=== PATIENT | female | born 1970 | race Caucasian/White ===

== ENCOUNTER 2019-07-15 08:19 | Outpatient (CLI) | payer OTHER, SELFPAY ==
--- NOTE | ~2019-07-15 | CT_ITS ---
EXAMINATION: CT cervical spine wo con DATE: 07/15/2019 08:51 INDICATION: Nerve impingement. Spinal stenosis. TECHNIQUE: Computed tomography (CT) of the cervical spine was performed without intravenous contrast. Automated exposure control and iterative reconstruction technique were employed. The dose-length pro duct was 371.11 mGy-cm. COMPARISON: Cervical spine CT 04/01/2018 FINDINGS: There is mild kyphosis of cervical spine. There is 15 degrees dextroscoliosis of cervical s pine. Vertebral body heights are normal. There is mildly decreased disc height at C5-C6 and C6-C7. Th ere is interbody fusion at C7-T1. The following disc levels are specifically discussed: C2-C3: There is mild bilateral uncovertebral joint osteoarthritis. There is severe bilateral facet shani int osteoarthritis. There is no neural foraminal stenosis. There is no central canal stenosis. C3-C4: There is mild right and severe left uncovertebral joint osteoarthritis. There is severe bilate ral facet joint osteoarthritis. There is mild left neural foraminal stenosis. There is mild central c anal stenosis. C4-C5: There is mild left uncovertebral joint osteoarthritis. There is moderate right and severe left facet joint osteoarthritis. There is mild left neural foraminal stenosis. There is mild central juan f l stenosis. C5-C6: There is mild bilateral uncovertebral joint osteoarthritis. There is mild right and severe lef t facet joint osteoarthritis. There is mild left neural foraminal stenosis. There is mild central can al stenosis. C6-C7: There is mild right and moderate left uncovertebral joint osteoarthritis. There is mild bilate ral facet joint osteoarthritis. There is mild left neural foraminal stenosis. There is mild central c anal stenosis. C7-T1: There is no uncovertebral joint hypertrophy. There is ankylosis of the facet joints without hy pertrophy. There is no neural foraminal stenosis. There is no central canal stenosis. IMPRESSION: 1. Mild cervical spondylosis, stable from 04/01/2018. 2. Anterior and posterior fusion at C7-T1. 3. Cervical dextroscoliosis. Reviewed, dictated and finalized at location E.
--- NOTE | ~2019-07-15 | CT_ITS ---
EXAMINATION: CT thoracic spine wo con EXAM DATE: 07/15/2019 08:51 INDICATION: Nerve impingement. Spinal stenosis. TECHNIQUE: Spiral CT thoracic spine wo con was performed without contrast. Axial, coronal and sagit fran images were reviewed. The dose-length product (DLP) for this examination was 938.19 mGy-cm. The exposure was tailored according to patient size (auto mA exposure control), and iterative reconstruc tion (ASIR) was used as additional dose reduction technique. There is no prior study for comparison. FINDINGS: Spine stimulator device, leads at about T10 level. Pain pump with tip at T9-T10 endplate le anam. There is mild mid and lower thoracic disc disease with small endplate osteophytes and small Schm orl's nodes. The vertebral bodies are aligned in the AP dimension. Vertebral body heights are maintai patrick. Congenitally fused C7-T1 segment. There are no acute fractures identified. Paraspinal soft tissu e is unremarkable. There is mild thoracic facet arthropathy. No central canal or neural foraminal gideon nosis. IMPRESSION: 1. Mild thoracic spondylosis. 2. Spine stimulator and pain pump device. Reviewed, dictated and finalized at location A.
== END 2019-07-15 08:20 | disposition home or self-care (01) ==
PROVIDERS: Visit Provider Nurse Practitioner Family
DX: M47.894 Other spondylosis, thoracic region (principal); Z98.1 Arthrodesis status; M47.22 Other spondylosis with radiculopathy, cervical region
CPT/HCPCS: 72125; 72128

== ENCOUNTER 2019-10-29 06:53 | Outpatient (NON) | payer OTHER, SELFPAY ==
[2019-10-29 18:13] LABS: SARS-CoV-2 RNA PCR Negative
== END 2019-10-29 06:54 ==
PROVIDERS: Visit Provider Nurse Practitioner Adult Health
DX: Z20.828 Contact with and (suspected) exposure to other viral communicable diseases (principal)
CPT/HCPCS: 87635; C9803; U0003

== ENCOUNTER 2020-04-05 02:39 | Emergency (ER) | payer OTHER, SELFPAY ==
[2020-04-05 02:51] VITALS: BP 159/81; PULSE 74; RESP 20; TEMP 37.2; O2SAT 99
--- NOTE | 2020-04-05 03:05 | ED.FEMALEGU ---
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 She reports that she has been on her period for five days, which is unusual. Today while at work she felt a sudden chamorro of blood. She checked and she had soaked through her pad and there was a large clot. She denies any other symptoms. No blood thinners. Related Data Home Medications Medication Instructions Recorded Confirmed Dilaudid 01/23/19 baclofen 01/23/19 01/23/19 clonidine 01/23/19 Allergies Allergy/AdvReac Type Severity Reaction Status Date / Time aspirin Allergy Unknown Vomiting Verified 04/05/20 02:42 celecoxib Allergy Unknown Vomiting Verified 04/05/20 02:42 codeine Allergy Unknown Vomiting Verified 04/05/20 02:42 levofloxacin Allergy Unknown Vomiting Verified 04/05/20 02:42 morphine Allergy Unknown RASH Verified 05/03/18 15:31 Penicillins Allergy Unknown RASH Verified 05/03/18 15:31 Sulfa (Sulfonamide Allergy Unknown Vomiting Verified 04/05/20 02:42 Antibiotics) CIPROFLOXACIN HCL Allergy Unknown Vomiting Uncoded 04/05/20 02:42 NITROFURANTOIN MACROCRYSTAL Allergy Unknown Vomiting Uncoded 04/05/20 02:42 Review of Systems Review of Systems: All systems reviewed & are unremarkable except as noted in HPI and below Constitutional: Constitutional: Denies chills and Denies fatigue ENT: Denies dizziness Cardiovascular: Cardiovascular: Denies chest pain Respiratory: Respiratory: Denies dyspnea Gastrointestinal: Gastrointestinal: Denies abdominal pain, Denies nausea and Denies vomiting Genitourinary: Genitourinary: Denies hematuria, Denies nocturia and Denies dysuria Musculoskeletal: Musculoskeletal: Denies back pain Neurologic: Denies dizziness, Denies numbness and Denies weakness Hematologic/Lymphatic: Hematologic/Lymphatic: Denies easy bleeding and Denies easy bruising PMFSH Past Medical History Medical History Fibromyalgia Sympathetic reflex dystrophy Social History Social History Gender identity (if verbalized by the patient): Male Exam Const: General: no acute distress and alert Orientation/consciousness: patient oriented x3 HENMT: Head: normal to inspection Neck: Neck: normal visual inspection Chest: Chest palpation & inspection: no tenderness Resp: Effort & Inspection: normal respiratory effort Auscultation: clear to auscultation bilaterally, no rales, no rhonchi and no wheezes Cardio: Jugular venous distension: no JVD Rate: regular rate Rhythm: regular rhythm Heart sounds: no murmurs GI: Inspection: non-distended GI Palp: Yes Soft to palpation and No Tenderness to palpation present (GI) : External Female Exam: normal external appearance Speculum Exam - Vagina: normal appearance of the vagina, normal vaginal discharge and vaginal bleeding (moderate) Skin: General skin exam: normal color Neuro: General: patient oriented x3 and moves all extremities Speech: normal speech Gait exam (Neuro): Normal gait present Extrem: General: no edema Psych: Appearance: well kempt Affect: normal affect Course Vital Signs Vital signs: Vital Signs Temperature 37.2 C 04/05/20 02:51 Pulse Rate 74 04/05/20 02:51 Respiratory Rate 20 04/05/20 02:51 Blood Pressure 159/81 H 04/05/20 02:51 Pulse Oximetry 99 04/05/20 02:51 Temperature 37.2 C 04/05/20 02:51 Pulse Rate 71 04/05/20 05:10 Respiratory Rate 18 04/05/20 05:10 Blood Pressure 135/78 04/05/20 05:10 Pulse Oximetry 96 04/05/20 05:10 MDM - Female Genitourinary Lab Data Result diagrams: 04/05/20 03:40 04/05/20 03:40 Labs: Lab Results 04/05/20 04/05/20 04/05/20 Range/Units 03:40 03:40 03:40 WBC 7.0 (4.5-10.
[2020-04-05 03:53] LABS: Basophils Percent Auto 0.6 % (0.2-1.2); Eosinophils Absolute Auto 0.6 K/mm3 (0-0.3); Hematocrit 33.4 % (37.0-47.0); Hemoglobin 10.8 g/dL (12.0-15.0); Immature Granulocyte Absolute 0.02 K/mm3 (0.00-0.031); Immature Granulocyte Percent A 0.3 % (0-0.5); Lymphocytes Absolute Auto 2.39 K/mm3 (0.9-3.2); Lymphocytes Percent Auto 34.2 % (18.3-44.2); Mean Corpuscular HGB Conc 32.3 g/dl (32-36); Mean Corpuscular Hemoglobin 28.1 pg (26-34); Monocytes Absolute Auto 0.5 K/mm3 (0.1-0.6); Neutrophils Absolute Auto 3.5 K/mm3 (1.3-6.7); Neutrophils Percent Auto 49.9 % (45.5-73.1); Platelet Count Result 229 k/mm3 (150-375); Red Blood Count 3.84 M/mm3 (4.2-5.4); Red Cell Distribution Width 13.6 % (11.5-14.5)
[2020-04-05 03:58] LABS: INR 0.9
[2020-04-05 03:59] LABS: Partial Thromboplastin Time 30.6 SECONDS (22.3-36.8)
[2020-04-05 04:00] LABS: Anion Gap 7 mmol/L (8-16); Blood Urea Nitrogen 17 mg/dL (7-17); Calcium 8.6 mg/dL (8.4-10.2); Carbon Dioxide 26 mmol/L (22-30); Chloride 105 mmol/L (98-107); Estimated CRCL calculation 98 ml/min; Estimated Glomerular Filt Rate > 60; Glucose 102 mg/dL (65-105); Potassium 3.6 mmol/L (3.4-5.0); Sodium 138 mmol/L (137-145)
[2020-04-05 05:10] VITALS: BP 135/78; PULSE 71; RESP 18; O2SAT 96
== END 2020-04-05 05:12 | disposition home or self-care (01) ==
PROVIDERS: Emergency Provider Emergency Medicine
DX: N92.0 Excessive and frequent menstruation with regular cycle (principal); M79.7 Fibromyalgia; G90.50 Complex regional pain syndrome I, unspecified
CPT/HCPCS: 36415; 80048; 85025; 85610; 85730; 99284

== ENCOUNTER 2020-07-02 12:13 | Emergency (ER) | payer OTHER, SELFPAY ==
--- NOTE | ~2020-07-02 | XR_ITS ---
XR elbow RT min 3V DATE: 07/02/2020 13:07 INDICATION: Right elbow pain for 2 weeks TECHNIQUE: 4 views COMPARISON: None FINDINGS: There is spurring of the coronoid process of the proximal ulna. No fracture or dislocation, periosteal reaction or bone destruction or joint effusion. IMPRESSION: Spurring of the coronoid process Reviewed, dictated and finalized at location A.
--- NOTE | 2020-07-02 12:33 | ED.UPPEXIN ---
HPI - Extremity Injury (Upper) General Chief Complaint: Extremity Injury, Upper Stated Complaint: right elbow pain Time Seen by Provider: 07/02/20 12:33 Source: patient and RN notes reviewed Mode of arrival: ambulatory Limitations: no limitations History of Present Illness HPI narrative: 49-year-old female presents to the care with complaints of elbow pain. States that she has had right elbow pain for about 2 weeks with swelling. Denies any injury. 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 Positive radial pulse. Sensation intact in all 5 fingers. 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 Full range of motion of the elbow and wrist. 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 Related Data Home Medications Medication Instructions Recorded Confirmed Dilaudid 01/23/19 baclofen 01/23/19 01/23/19 clonidine 01/23/19 Allergies Allergy/AdvReac Type Severity Reaction Status Date / Time aspirin Allergy Unknown Vomiting Verified 04/05/20 02:42 celecoxib Allergy Unknown Vomiting Verified 04/05/20 02:42 codeine Allergy Unknown Vomiting Verified 04/05/20 02:42 levofloxacin Allergy Unknown Vomiting Verified 04/05/20 02:42 morphine Allergy Unknown RASH Verified 05/03/18 15:31 Penicillins Allergy Unknown RASH Verified 05/03/18 15:31 Sulfa (Sulfonamide Allergy Unknown Vomiting Verified 04/05/20 02:42 Antibiotics) CIPROFLOXACIN HCL Allergy Unknown Vomiting Uncoded 04/05/20 02:42 NITROFURANTOIN MACROCRYSTAL Allergy Unknown Vomiting Uncoded 04/05/20 02:42 Review of Systems Review of Systems: All systems reviewed & are unremarkable except as noted in HPI and below Constitutional: Constitutional: Reports no additional constitutional complaints and Denies fever(s) Cardiovascular: Cardiovascular: Reports no additional cardiovascular complaints and Denies chest pain Respiratory: Respiratory: Reports no additional respiratory complaints, Denies cough, Denies dyspnea and Denies wheezing Musculoskeletal: Musculoskeletal: Reports as per HPI, Denies back pain, Denies myalgias, Reports arthralgias (Right elbow) and Reports joint swelling (Right elbow) Integumentary/Breasts: Skin/Breast: Reports system reviewed and no additional complaints, except as docu Neurologic: Reports system reviewed and no additional complaints, except as documented PMFSH Past Medical History Medical History Fibromyalgia Sympathetic reflex dystrophy Social History Social History Gender identity (if verbalized by the patient): Male Comments At the time of my signature, I reviewed and agree with the nursing past medical, surgical, social, and family history. There is no relevant family history pertinent to the patient complaint. Exam Const: General: healthy appearing, no acute distress and alert Nutritional Appearance: well nourished Orientation/consciousness: patient oriented x3 Neck: Neck: normal visual inspection and no lymphadenopathy Chest: Chest palpation & inspection: normal inspection of the chest Resp: Effort & Inspection: normal respiratory effort and no use of accessory muscles Auscultation: clear to auscultation bilaterally, no crackles, no rales, no rhonchi and no wheezes Cardio: Rate: regular rate Rhythm: regular rhythm Skin: General skin exam: normal color Rashes: no rashes Neuro: General: patient oriented x3 and moves all extremities Speech: normal speech Gait exam (Neuro): Normal gait present Extrem: General: normal to inspection and full ROM Right upper extremity: elbow/forearm normal to inspection, tenderness and normal ROM; no swelling, no unusual warmth and no ecchymosis Psych: Appearance: grossly normal Mental Status: mental status grossly normal Affect: normal affect Attitude: cooperative Thought content: Yes Normal thought content present Course Vital Signs Vital signs: Vital Signs Temperature 97.9 F 07/02/20 12:36 Pulse Rate 76 07/02/20 12:36 Respiratory Rate
[2020-07-02 12:36] VITALS: BP 170/92; PULSE 76; RESP 22; TEMP 36.6; O2SAT 99
== END 2020-07-02 13:25 | disposition home or self-care (01) ==
PROVIDERS: Emergency Provider Nurse Practitioner
DX: M19.021 Primary osteoarthritis, right elbow (principal); M79.7 Fibromyalgia; G90.50 Complex regional pain syndrome I, unspecified
CPT/HCPCS: 73080; 99213; G0463

== ENCOUNTER 2020-09-24 15:31 | Emergency (ER) | payer OTHER, SELFPAY ==
[2020-09-24 15:41] VITALS: BP 156/108; PULSE 90; RESP 18; TEMP 37.2; O2SAT 100
--- NOTE | 2020-09-24 16:09 | ED.URI ---
HPI - URI/Sore Throat General Chief Complaint: Upper Respiratory Infection Stated Complaint: Ear Pain,Runny Nose,Sore Throat Time Seen by Provider: 09/24/20 16:09 Source: patient Mode of arrival: ambulatory Limitations: no limitations History of Present Illness HPI Narrative: Norma Castro is a 49 yo female with a PMH of regional pain dystrophy, DJD, who comes to [facility] with 10 days of congestion and ear pain and feeling like sinus mucus is running down her throat. She has tried DayQuil and NyQuil and Tylenol and is not feeling any better Related Data Home Medications Medication Instructions Recorded Confirmed Dilaudid 01/23/19 baclofen 01/23/19 01/23/19 clonidine 01/23/19 Allergies Allergy/AdvReac Type Severity Reaction Status Date / Time aspirin Allergy Unknown Vomiting Verified 04/05/20 02:42 celecoxib Allergy Unknown Vomiting Verified 04/05/20 02:42 codeine Allergy Unknown Vomiting Verified 04/05/20 02:42 levofloxacin Allergy Unknown Vomiting Verified 04/05/20 02:42 morphine Allergy Unknown RASH Verified 05/03/18 15:31 Penicillins Allergy Unknown RASH Verified 05/03/18 15:31 Sulfa (Sulfonamide Allergy Unknown Vomiting Verified 04/05/20 02:42 Antibiotics) CIPROFLOXACIN HCL Allergy Unknown Vomiting Uncoded 04/05/20 02:42 NITROFURANTOIN MACROCRYSTAL Allergy Unknown Vomiting Uncoded 04/05/20 02:42 Review of Systems Review of Systems: CONSTITUTIONAL: Denies fever, chills, sweats. EYES: Denies visual changes, redness, discharge. ENT: Denies rhinorrhea, has congestion, has sore throat, bilateral otalgia. CARDIOVASCULAR: Denies chest pain, palpitations, edema. RESPIRATORY: Denies dyspnea, wheezing, no cough GASTROINTESTINAL: Denies abdominal pain, nausea, vomiting, diarrhea. GENITOURINARY: Denies dysuria, hematuria, abnormal discharge SKIN: Denies rash or itching. NEUROLOGIC: Denies numbness, or focal weakness. PSYCHIATRIC: Denies anxiety or depression. [facility] Past Medical History Medical History Complex regional pain syndrome DJD (degenerative joint disease) Fibromyalgia Sympathetic reflex dystrophy Social History Social History (Updated 09/24/20 @ 16:19 by Lu Olguin CNP) Smoking status: Never smoker Alcohol intake: never Gender identity (if verbalized by the patient): Male Comments At time of signature, I agree with nursing past medical, surgical, social and family history. There is no relevant family history pertinent to the presenting complaint. Exam Narrative: GENERAL: This is a well-nourished, well-developed patient, in mild distress. HEAD: normocephalic, atraumatic. EYES: Sclera clear/white. Vision is grossly intact. EARS: External ears normal, auditory canals erythema and with drainage, TMs normal without perforation. Hearing grossly intact. NOSE: External nose normal without nasal discharge, nares with redness, has rhinorrhea. THROAT: Mucous membranes moist, posterior pharynx mild erythema NECK: Neck supple, non-tender CARDIOVASCULAR: Regular rate and rhythm without murmurs, gallops, or rubs. RESPIRATORY: Clear to auscultation. Breath sounds equal bilaterally. No wheezes, rales, or rhonchi. GASTROINTESTINAL: Abdomen soft, SKIN: warm, intact with no suspicious lesions or rash, good texture and turgor. NEURO: awake, alert, and oriented to person, place and time. There were no obvious focal neurologic abnormalities. Steady gait EXTREMITIES: Normal range of motion. BACK: Nontender without deformity Course Course Emergency Course: Patient comes with complaints of bilateral ear pain sore throat and congestion in her nose and had for up to 8 days Started on polymyxin eardrops Prednisone tablets followed by [id number] Flonase Zyrtec Mucinex Discussed patient follow-up for elevated blood pressure Vital Signs Vital signs: Vital Signs Temperature 98.9 F 09/24/20 15:41 Pulse Rate 90 09/24/20 15:41 Respir
== END 2020-09-24 16:33 | disposition home or self-care (01) ==
PROVIDERS: Emergency Provider Nurse Practitioner
DX: J06.9 Acute upper respiratory infection, unspecified (principal); M79.7 Fibromyalgia
CPT/HCPCS: 99213; G0463

== ENCOUNTER → 2020-10-18 03:07 | Outpatient (CLI) | payer OTHER, SELFPAY ==
[2020-10-18 20:00] LABS: SARS-CoV-2 RNA PCR Negative
== END ==
DX: Z01.812 Encounter for preprocedural laboratory examination (principal); Z20.822 Contact with and (suspected) exposure to COVID-19
CPT/HCPCS: C9803; U0003; U0005

== ENCOUNTER 2022-01-05 18:21 | Emergency (ER) | payer OTHER, SELFPAY ==
[2022-01-05 18:24] VITALS: BP 158/83; PULSE 65; RESP 21; TEMP 37; O2SAT 99
--- NOTE | 2022-01-05 18:40 | ED.WOUNDLAC ---
HPI - Wound/Laceration General Chief Complaint: Wound/Laceration Stated Complaint: Right Hand Finger Laceration Time Seen by Provider: 01/05/22 18:40 Source: patient Mode of arrival: ambulatory Limitations: no limitations History of Present Illness HPI narrative: 51-year-old female presents with laceration to right index finger that happened approximately 4 hours prior to arrival. States she cut herself with a clean kitchen knife while slicing a radish. Bleeding controlled. Distal neurovascularly intact. Patient arrived with gorilla tape around wound. all systems reviewed and negative except as noted above. Related Data Home Medications Medication Instructions Recorded Confirmed ezetimibe 10 mg tablet 10 mg PO DAILY 01/05/22 01/05/22 norethindrone 1 mg-ethinyl 1 tablet PO DAILY 01/05/22 01/05/22 estradiol 20 mcg (21)-iron 75 mg (7) tablet (03/14 (28)) pregabalin 200 mg capsule 200 mg PO DIRECTED 01/05/22 01/05/22 Allergies Allergy/AdvReac Type Severity Reaction Status Date / Time aspirin Allergy Unknown Vomiting Verified 01/05/22 18:40 celecoxib Allergy Unknown Vomiting Verified 01/05/22 18:40 codeine Allergy Unknown Vomiting Verified 01/05/22 18:40 levofloxacin Allergy Unknown Vomiting Verified 01/05/22 18:40 morphine Allergy Unknown RASH Verified 01/05/22 18:40 Penicillins Allergy Unknown RASH Verified 01/05/22 18:40 Sulfa (Sulfonamide Allergy Unknown Vomiting Verified 01/05/22 18:40 Antibiotics) CIPROFLOXACIN HCL Allergy Unknown Vomiting Uncoded 01/05/22 18:40 NITROFURANTOIN MACROCRYSTAL Allergy Unknown Vomiting Uncoded 01/05/22 18:40 Review of Systems Review of Systems: CONSTITUTIONAL: Denies fever, chills, or sweats. EYES: Denies visual changes, redness, or discharge. ENT: Denies rhinorrhea, congestion, sore throat, or otalgia. CARDIOVASCULAR: Denies chest pain, palpitations, or edema. RESPIRATORY: Denies cough or dyspnea. GASTROINTESTINAL: Denies abdominal pain, nausea, vomiting, or diarrhea. GENITOURINARY: Denies dysuria or hematuria. SKIN: Denies rash or itching. Reports laceration to right index finger. MUSCULOSKELETAL: Denies back pain, joint pain, or myalgia. NEUROLOGIC: Denies headache, numbness, or weakness. PSYCHIATRIC: Denies anxiety or depression. All other systems reviewed are negative, except as documented in HPI. [facility] Past Medical History Medical History Complex regional pain syndrome DJD (degenerative joint disease) Fibromyalgia Sympathetic reflex dystrophy Social History Social History (Updated 09/24/20 @ 16:19 by Lu Olguin, DEEP) Smoking status: Never smoker Alcohol intake: never Gender identity (if verbalized by the patient): Male Comments At time of signature, agree with nursing past medical, surgical, social and family history. There is no relevant family history pertinent to the presenting complaint. Exam Narrative: GENERAL: This is a well-nourished, well-developed patient, in no apparent distress. HEAD: normocephalic, atraumatic. EYES: PERRL. Sclera clear/white. Vision is grossly intact. EARS: External ears normal NOSE: External nose normal NECK: Neck supple, non-tender without lymphadenopathy, masses or thyromegaly. CARDIOVASCULAR: Regular rate and rhythm without murmurs, gallops, or rubs. RESPIRATORY: Clear to auscultation. Breath sounds equal bilaterally. No wheezes, rales, or rhonchi. SKIN: warm, Dry, with no suspicious lesions or rash, good texture and turgor. 1.5 cm laceration to distal aspect of right index finger. Bleeding controlled. Range of motion distal neurovascular intact. NEURO: awake, alert, and oriented to person, place and time. There were no obvious focal neurologic abnormalities. EXTREMITIES: No joint tenderness, effusion, or edema noted. Course Course Level of Care: Express Care Visit Vital Signs Vital signs: Reviewed Procedures Laceratyeshao
[2022-01-05] MEDS: TETANUS,DIPHTHERIA,AC PERTUSSIS ADULT (0.5 ML) BOOSTRIX IM (18:56)
== END 2022-01-05 19:12 | disposition home or self-care (01) ==
PROVIDERS: Emergency Provider Nurse Practitioner Family
DX: S61.210A Laceration without foreign body of right index finger without damage to nail, initial encounter (principal); W26.0XXA Contact with knife, initial encounter; Y93.G1 Activity, food preparation and clean up; Z23 Encounter for immunization; M79.7 Fibromyalgia; G90.50 Complex regional pain syndrome I, unspecified
CPT/HCPCS: 12001; 90471; 90715; 99212; G0463

== ENCOUNTER 2022-11-28 08:30 | Emergency (ER) | payer OTHER, SELFPAY ==
--- NOTE | 2022-11-28 08:49 | ED.FEMALEGU ---
HPI - Female Genitourinary General Chief complaint: Urogenital-Female Stated complaint: UTI Time Seen by Provider: 11/28/22 08:45 Source: patient Mode of arrival: ambulatory Limitations: no limitations History of Present Illness HPI Narrative: Patient is a 52-year-old female that presents with pelvic pressure and pain since Thursday. Patient denies any burning with urination, frequency or urgency. Patient states her normal in UTI symptoms are just the pelvic pressure/pain. Patient states her last UTI was over a year ago. Patient reports last time she was given Macrobid and Pyridium which helped. MD elicited complaint: dysuria Related Data Home Medications Medication Instructions Recorded Confirmed ezetimibe 10 mg tablet 10 mg PO DAILY 01/05/22 11/28/22 norethindrone 1 mg-ethinyl 1 tablet PO DAILY 01/05/22 11/28/22 estradiol 20 mcg (21)-iron 75 mg (7) tablet (03/14 (28)) pregabalin 200 mg capsule 200 mg PO DIRECTED 01/05/22 11/28/22 Allergies Allergy/AdvReac Type Severity Reaction Status Date / Time aspirin Allergy Unknown Vomiting Verified 11/28/22 08:33 celecoxib Allergy Unknown Vomiting Verified 11/28/22 08:33 codeine Allergy Unknown Vomiting Verified 11/28/22 08:33 levofloxacin Allergy Unknown Vomiting Verified 11/28/22 08:33 morphine Allergy Unknown RASH Verified 11/28/22 08:33 Penicillins Allergy Unknown RASH Verified 11/28/22 08:33 Sulfa (Sulfonamide Allergy Unknown Vomiting Verified 11/28/22 08:33 Antibiotics) CIPROFLOXACIN HCL Allergy Unknown Vomiting Uncoded 11/28/22 08:33 NITROFURANTOIN MACROCRYSTAL Allergy Unknown Vomiting Uncoded 11/28/22 08:33 Review of Systems Review of Systems: All systems reviewed & are unremarkable except as noted in HPI and below Constitutional: Constitutional: Denies chills, Denies fever(s), Denies headache(s), Denies malaise and Denies weakness Eyes: Eyes: Denies change in vision, Denies eye discharge and Denies irritation ENT: Denies otalgia, Denies headache(s), Denies nasal congestion, Denies nasal discharge, Denies sinus pain and Denies sore throat Cardiovascular: Cardiovascular: Denies chest pain, Denies edema, Denies palpitations and Denies dyspnea Respiratory: Respiratory: Denies cough and Denies dyspnea Gastrointestinal: Gastrointestinal: Denies abdominal pain, Denies diarrhea, Denies nausea and Denies vomiting Genitourinary: Genitourinary: Denies hematuria, Denies nocturia, Denies dysuria, Reports pelvic pain, Denies flank pain and Denies urinary urgency Musculoskeletal: Musculoskeletal: Denies back pain and Denies numbness Integumentary/Breasts: Skin/Breast: Denies pruritus and Denies rash Neurologic: Denies headache(s), Denies numbness and Denies weakness Psychiatric: Psychiatric: Reports no additional psychiatric complaints Endocrine: Endocrine: Denies palpitations PMFSH Past Medical History Medical History Complex regional pain syndrome DJD (degenerative joint disease) Fibromyalgia Sympathetic reflex dystrophy Social History Social History Smoking status: Never smoker Alcohol intake: never Gender identity (if verbalized by the patient): Male Comments At time of signature, agree with nursing past medical, surgical, social and family history. There is no relevant family history pertinent to the presenting complaint. Exam Const: General: cooperative, healthy appearing, comfortable, no acute distress and well nourished Nutritional Appearance: well nourished Orientation/consciousness: patient oriented x3 HENMT: Head: normocephalic and atraumatic Ears: external ears normal Face/Nose/Sinus: Normal external nose present, Normal nares present and normal facial exam Face and sinus: normal facial exam Eyes: General: appearance normal, both eyes and all related structures Pupils: Equal, round and reactive pupils prese
[2022-11-28 08:51] VITALS: BP 128/87; PULSE 77; RESP 16; TEMP 37.1; O2SAT 100
== END 2022-11-28 09:19 | disposition home or self-care (01) ==
PROVIDERS: Emergency Provider Nurse Practitioner Family
DX: N30.01 Acute cystitis with hematuria (principal)
CPT/HCPCS: 81003; 87086; 87088; 87147; 99213; G0463

== ENCOUNTER 2023-01-28 15:05 | Emergency (ER) | payer OTHER, SELFPAY ==
[2023-01-28 15:20] VITALS: BP 146/81; PULSE 86; RESP 16; TEMP 37.8; O2SAT 99
--- NOTE | 2023-01-28 15:39 | ED.URI ---
HPI - URI/Sore Throat General Chief Complaint: Upper Respiratory Infection Stated Complaint: sore throat,runny nose Time Seen by Provider: 01/28/23 15:39 History of Present Illness HPI Narrative: 52-year-old female presented for complaint of sore throat for 3 days. Endorses mild runny nose. Denies cough, nausea, vomiting, diarrhea, fevers or chills. she is taking [id number] medications for symptoms. Denies known sick contacts. Related Data Home Medications Medication Instructions Recorded Confirmed ezetimibe 10 mg tablet 10 mg PO DAILY 01/05/22 01/28/23 norethindrone 1 mg-ethinyl 1 tablet PO DAILY 01/05/22 01/28/23 estradiol 20 mcg (21)-iron 75 mg (7) tablet (03/14 (28)) pregabalin 200 mg capsule 200 mg PO DIRECTED 01/05/22 01/28/23 Allergies Allergy/AdvReac Type Severity Reaction Status Date / Time aspirin AdvReac Intermediate Vomiting Verified 01/28/23 15:15 celecoxib AdvReac Intermediate Vomiting Verified 01/28/23 15:15 codeine AdvReac Intermediate Vomiting Verified 01/28/23 15:15 levofloxacin AdvReac Intermediate Vomiting Verified 01/28/23 15:15 Sulfa (Sulfonamide AdvReac Intermediate Vomiting Verified 01/28/23 15:15 Antibiotics) morphine AdvReac Mild RASH Verified 01/28/23 15:15 Penicillins AdvReac Mild RASH Verified 01/28/23 15:15 CIPROFLOXACIN HCL AdvReac Intermediate Vomiting Uncoded 01/28/23 15:15 NITROFURANTOIN MACROCRYSTAL AdvReac Intermediate Vomiting Uncoded 01/28/23 15:15 Review of Systems Review of Systems: CONSTITUTIONAL: Denies body aches, fever, chills, or sweats. EYES: Denies visual changes, redness, or discharge. ENT: Reports sore throat Denies congestion, or otalgia. CARDIOVASCULAR: Denies chest pain, palpitations, or edema. RESPIRATORY: Denies dyspnea. GASTROINTESTINAL: Denies abdominal pain, nausea, vomiting, or diarrhea. SKIN: Denies rash, itching, or wounds. MUSCULOSKELETAL: Denies back pain, joint pain, or myalgia. NEUROLOGIC: Denies headache PMFSH Past Medical History Medical History Complex regional pain syndrome DJD (degenerative joint disease) Fibromyalgia Sympathetic reflex dystrophy Social History Social History Smoking status: Never smoker Alcohol intake: never Gender identity (if verbalized by the patient): Male Exam Narrative: GENERAL: well-appearing, no acute distress. EYES: conjunctivae clear ENT: Mucous membranes moist. TMs unable to visualize bilaterally due to excess cerumen; no tragal tenderness. Oropharynx erythematous without lesions. No drooling, no hoarseness, no trismus, uvula midline. No tripod positioning, hot potato voice, or soft palate swelling. NECK: Supple. No lymphadenopathy CHEST: Clear to auscultation, breath sounds equal. No respiratory distress, speaks in full sentences. HEART: Regular rate and rhythm. No murmur heard. SKIN: Warm, dry, no rash. NEURO: Alert and oriented x3. Course Course Emergency Course: Patient is aware of diagnosis, understands and agrees to treatment plan. Anticipatory guidance given. Patient agrees to follow-up as directed and is aware of reasons to seek care at the emergency department. Portions of this record may have been created with voice recognition software Level of Care: Express Care Visit Vital Signs Vital signs: Vital Signs Temperature 100.0 F H 01/28/23 15:20 Pulse Rate 86 01/28/23 15:20 Respiratory Rate 16 01/28/23 15:20 Blood Pressure 146/81 H 01/28/23 15:20 Pulse Oximetry 99 01/28/23 15:20 Oxygen Delivery Room Air 01/28/23 15:20 Temperature 100.0 F H 01/28/23 15:20 Pulse Rate 86 01/28/23 15:20 Respiratory Rate 16 01/28/23 15:20 Blood Pressure 146/81 H 01/28/23 15:20 Pulse Oximetry 99 01/28/23 15:20 Oxygen Delivery Room Air 01/28/23 15:20 MDM - URI/Sore Throat MDM Narrative Medical decisio
== END 2023-01-28 15:45 | disposition home or self-care (01) ==
PROVIDERS: Emergency Provider Nurse Practitioner Family
DX: J02.9 Acute pharyngitis, unspecified (principal); M79.7 Fibromyalgia
CPT/HCPCS: 87081; 87880; 99213; G0463

== ENCOUNTER 2024-08-23 17:29 | Emergency (ER) | payer OTHER, SELFPAY ==
[2024-08-23 17:38] VITALS: BP 164/100; PULSE 75; RESP 20; TEMP 36.4; O2SAT 95
--- NOTE | 2024-08-23 19:22 | ED_ITS ---
HPI - Extremity Problem General Chief complaint: Extremity Problem,Nontraumatic Stated complaint: pain in left arm Time Seen by Provider: 08/23/24 18:00 Source: patient and RN notes reviewed Mode of arrival: ambulatory Limitations: no limitations History of Present Illness HPI Narrative: 53-year-old female presents Express Care complaining of left upper arm swelling and pain for approximately 1 week. She said she woke up with symptoms. Patient denies any injuries or falls her left arm. Patient states her left arm is more swollen in her right arm. Patient has tried Tylenol and ibuprofen without relief. Patient has a history of lupus and currently has a pain pump to help with her lupus symptoms. Patient denies any recent surgeries, be on blood thinners, history of blood clots, chest pain, shortness of breath, dizziness, lightheadedness, or any other symptoms. Related Data Home Medications ?Medication ?Instructions ?Recorded ?Confirmed ?Last Taken ?Type ezetimibe 10 mg tablet 10 mg PO DAILY 01/05/22 01/28/23 Unknown History norethindrone 1 mg-ethinyl 1 tablet PO DAILY 01/05/22 01/28/23 Unknown History estradiol 20 mcg (21)-iron 75 mg (7) tablet (03/14 (28)) pregabalin 200 mg capsule 200 mg PO DIRECTED 01/05/22 01/28/23 Unknown History Allergies Allergy/AdvReac Type Severity Reaction Status Date / Time aspirin AdvReac Intermediate Vomiting Verified 08/23/24 19:50 celecoxib AdvReac Intermediate Vomiting Verified 08/23/24 19:50 codeine AdvReac Intermediate Vomiting Verified 08/23/24 19:50 levofloxacin AdvReac Intermediate Vomiting Verified 08/23/24 19:50 Sulfa (Sulfonamide AdvReac Intermediate Vomiting Verified 08/23/24 19:50 Antibiotics) morphine AdvReac Mild RASH Verified 08/23/24 19:50 Penicillins AdvReac Mild RASH Verified 08/23/24 19:50 CIPROFLOXACIN HCL AdvReac Intermediate Vomiting Uncoded 08/23/24 19:50 NITROFURANTOIN MACROCRYSTAL AdvReac Intermediate Vomiting Uncoded 08/23/24 19:50 Review of Systems Review of Systems: CONSTITUTIONAL: Denies fever, chills, or sweats. EYES: Denies visual changes, redness, or discharge. ENT: Denies rhinorrhea, congestion, sore throat, or otalgia. CARDIOVASCULAR: Denies chest pain, palpitations, or edema. RESPIRATORY: Denies cough, wheezing or dyspnea. GASTROINTESTINAL: Denies abdominal pain, nausea, vomiting, or diarrhea. GENITOURINARY: Denies dysuria or hematuria. SKIN: Denies rash or itching. MUSCULOSKELETAL: Denies back pain, joint pain, or myalgia. Positive for left arm pain and swelling. NEUROLOGIC: Denies headache, numbness, or weakness. PSYCHIATRIC: Denies anxiety or depression. All other systems reviewed are negative, except as documented in HPI. [facility] Past Medical History Medical History DJD (degenerative joint disease) Complex regional pain syndrome Fibromyalgia Sympathetic reflex dystrophy Social History Social History Smoking status: Never smoker Alcohol intake: never Gender identity (if verbalized by the patient): Male Comments At the time of my signature, I reviewed and agree with the nursing past medical, surgical, social, and family history. There is no relevant family history pertinent to the patient complaint. Exam Narrative: GENERAL: This is a well-nourished, well-developed adult, in no apparent distress. They are non ill-appearing, nontoxic appearing. HEAD: normocephalic, atraumatic. EYES: Sclera clear/white. Conjunctiva normal. Vision is grossly intact. Extraocular movements intact EARS: External ears normalHearing grossly intact. NOSE: External nose normal THROAT: Mucous membranes moist, NECK: Neck supple, CARDIOVASCULAR: Regular rate and rhythm without murmurs, gallops, or rubs. RESPIRATORY: Clear to auscultation. Breath sounds equal bilaterally. No wheezes, rales, or rhonchi. SKIN: warm, Dry, intact with no suspicious lesions or rash, good texture and turgor. NEURO: awake, alert, and oriented to person, place and time. There were no obvious focal neurologic abnormalities. EXTREMITIES: Left upper extremity: Left upper extremity above elbow is obviously swollen compared to her right upper extremity. There is tenderness to palpation to the upper anterior arm with a palpable knot. There is no redness or ecchymosis. Left radial pulse 2 +and palpable. Normal range of motion. Normal sensation. Neurovascular status intact distal to swelling. Course Course Emergency Course: Portions of this record may have been created with voice recognition software Level of Care: Express Care Visit Vital Signs Vital signs: Vital Signs Temperature 97.6 F 08/23/24 17:38 Pulse Rate 75 08/23/24 17:38 Respiratory Rate 20 08/23/24 17:38 Blood Pressure 164/100 H 08/23/24 17:38 Pulse Oximetry 95 08/23/24 17:38 Oxygen Delivery Room Air 08/23/24 17:38 Temperature 97.6 F 08/23/24 17:38 Pulse Rate 75 08/23/24 17:38 Respiratory Rate 20 08/23/24 17:38 Blood Pressure 164/100 H 08/23/24 17:38 Pulse Oximetry 95 08/23/24 17:38 Oxygen Delivery Room Air 08/23/24 17:38 Reviewed Transfer Transfered to: [facility] Transportation: Other (Private vehicle) Transfer rationale: Higher level care, rule out deep vein thrombosis, requires ultrasound imaging Accepting physician: Milagros Ng PA-C MDM - Extremity (Nontraumatic) MDM Narrative Medical decision making narrative: Patient's pain and swelling is atraumatic. Given palpable knot and asymmetric swelling compared to right upper extremity, a deep vein thrombosis cannot be ruled out. No bony tenderness. Well score of 1 which indicates a moderate risk. Patient has no chest pain or shortness of breath. Given patient's symptoms, it is recommend the patient seek a higher level care and proceed immediately to the emergency department for further evaluation and management of her symptoms, and possible imaging including but not limited to ultrasound imaging to assess for DVT. Neurovascular status intact distal swelling. Patient is agreeable to go to [facility]. Called [facility] and spoke to Milagros Ng PA-C was wear this patient accepted the patient for transfer. Patient advised to remain NPO and proceed immediately to the ER. 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 Differential Diagnosis Differential diagnosis: Likely deep venous thrombosis of upper extremity and other (Pathological fracture, superficial thrombophlebitis, cellulitis) Critical Care Time Critical Care Time Critical Care Time: No Discharge Plan Discharge Clinical Impression: Pain and swelling of left upper extremity Patient Disposition: Acute Care Hospital Condition: Stable Patient Language: Ecuadorean Prescriptions: No Action norethindrone-e.estradiol-iron [03/14 (28)] 1 mg-20 mcg (21)/75 mg (7) tablet 1 tablet PO DAILY ezetimibe 10 mg tablet 10 mg PO DAILY pregabalin 200 mg capsule 200 mg PO DIRECTED Follow-up/Referrals: Josh,MD [place] [Primary Care Provider] - Time of Disposition: 18:15
== END 2024-08-23 18:20 | disposition short-term general hospital (02) ==
LOC: EXPCOLL 17:31
PROVIDERS: PCP Family Medicine
DX: M79.622 Pain in left upper arm (principal); R22.32 Localized swelling, mass and lump, left upper limb; M79.7 Fibromyalgia
CPT/HCPCS: 99212; G0463

== ENCOUNTER 2024-08-23 19:15 | Emergency (ER) | payer OTHER, SELFPAY ==
--- NOTE | ~2024-08-23 | US_ITS ---
LEFT UPPER EXTREMITY VENOUS ULTRASOUND Ordering provider: Fady Castillo MD History: . hx dvt, arm swelling and pain . Comparison: None. FINDINGS: --JUGULAR: Patent and free of thrombus. Normal compressibility, phasic flow and augmentation. --SUBCLAVIAN: Patent and free of thrombus. Normal compressibility, phasic flow and augmentation. --AXILLARY: Patent and free of thrombus. Normal compressibility, phasic flow and augmentation. --BRACHIAL: Patent and free of thrombus. Normal compressibility, phasic flow and augmentation. --CEPHALIC: Patent and free of thrombus. Normal compressibility, phasic flow and augmentation. --BASILIC: Patent and free of thrombus. Normal compressibility, phasic flow and augmentation. --RADIAL: Patent and free of thrombus. Normal compressibility, phasic flow and augmentation. --ULNAR: Patent and free of thrombus. Normal compressibility, phasic flow and augmentation. IMPRESSION: Negative left upper extremity venous US. No deep vein thrombosis. Reviewed, dictated and finalized at location A.
--- OUTSIDE RECORDS SUMMARY | 2024-08-23 19:18 | XMS_ITS | Clinical Summary ---
Author Organization [facility] Address [address] [place] [address] Care Team Providers Care Global Marketing Operations Manager Name Role Phone Ivan Villa NP Primary Care Provider [phone] Allergies Active Allergy Reactions Criticality Noted Date Comments Aspirin Nausea And Vomiting,Syncope High 09/19/2011 Celecoxib Diarrhea,Nausea And Vomiting,Rash Medium 02/27/2012 GI bleed-bloody BMs Ciprofloxacin Rash,Stomach upset Medium 02/27/2012 Stomach/GI Upset Codeine Rash,Nausea & Vomiting,Hives Medium 09/19/2011 Levofloxacin Rash,Nausea & Vomiting Medium 09/19/2011 Meloxicam Rash,Nausea & Vomiting,Hives Medium 07/26/2015 Morphine Rash,Nausea & Vomiting,Hives Medium 02/27/2012 Nitrofurantoin Hives,Stomach upset Medium 09/19/2011 Not sure Stomach/GI Upset Penicillins Rash Medium 02/23/2016 Rash Sulfa (Sulfonamide Antibiotics) Stomach upset Low 02/23/2016 Medications HYDROmorphone in 0.9 % NaCl (DILAUDID) 50 mg/50 mL infusion Infuse into a venous catheter continuously. Active baclofen (GABLOFEN) 10,000 mcg/20mL (500 mcg/mL) solution PAIN PUMP Act claudio cloNIDine in water-simple syrup 5 mcg/kg/day continuous Through Pain pump Active ascorbic acid (VITAMIN C) 500 mg tablet,chewable Take 1 tablet/chew tab (500 mg total) by mouth daily Active goldenseal/Echina cea purpurea (ECHINACEA-DAMON SEAL ORAL) Take 500 mg by mouth daily Active vitamin b complex tablet Take 1 tablet by mouth daily Active calcium carbonate (OS-RIGOBERTO) 1,500 mg (600 mg of elemental calcium) tablet Take 1 tablet (1,500 mg total) by mouth daily Active mv,Ca,min-FA-herb al no.157 400 mcg tablet Take 1 tablet by mouth daily Active diclofenac sodium (VOLTAREN) 1 % gel daily as needed 0 Active Narcan 4 mg/actuation spray,non-aerosol Administer 1 spray into affected nostril(s) as needed 0 Active pregabalin (LYRICA) 200 mg capsule Take 1 capsule (200 mg total) by mouth 2 (two) times a day 1 Active ondansetron (Zofran) 4 mg tablet Take 1 tablet (4 mg total) by mouth every 8 (eight) hours as needed for nausea or vomiting 20 tablet 1 2 Active Additional Information Patient not taking.Reported on 08/07/2022 calcium-magnesium -zinc tablet Take 1 tablet by mouth daily Active mirabegron ER (MYRBETRIQ) 50 mg tablet extended release 24 hr Take 1 tablet (50 mg total) by mouth daily 30 tablet 11 2 Active tranexamic acid (LYSTEDA) 650 mg tabletIndications :Heavy menstrual bleeding Take 2 tablets by mouth every 6-8 hrs (3 times a day) starting today for 5 days. Do not take control pills while taking this medication. 30 tablet 2 Active norethindrone (MICRONOR) 0.35 mg tabletIndications : Contraception Take 1 tablet (0.35 mg total) by mouth daily 28 tablet 12 3 Active dicyclomine (BENTYL) 20 mg tablet Take 1 tablet (20 mg total) by mouth 2 (two) times a day 20 tablet 3 Active ezetimibe (ZETIA) 10 mg tablet TAKE 1 TABLET BY MOUTH EVERY DAY AT NIGHT 90 tablet 3 4 Active Active Problems Problem Noted Date Diagnosed Date Mild intermittent asthma without complication Assessment & Plan (07/22/2022 11:59 AM CDT): No shortness of breath No inhaler use for past two years per patient Generalized joint pain 05/05/2022 Encounter for removal of sutures 01/27/2022 Assessment & Plan (01/27/2022 8:27 AM CONSTRUCTION TECH): 5 sutures removed, patient tolerated well Wound edges well approximated Home care reviewed Arthritis of both elbows 07/29/2021 Assessment & Plan (07/29/2021 10:56 AM CDT): Radiographically the patient has fairly pronounced arthritis of both of her elbows for her age. She does have a family history of inflammatory arthropathies and would recommend checking an DORA and rheumatoid factor in the event serology testing is helpful. She may find topical rubs helpful. She should avoid overuse and heavy lifting. Warm soaks and stretching may be helpful. She may want to consider moving to a place that has more consistent whether to avoid aggravating her elbows as well long-term. Back pain 05/30/2021 Overview (05/30/2021): cervical and thoracic and lumbar Bipolar affective 05/30/2021 Overview (05/30/2021): Dr. Mino Evans [phone] (anxiety/depression) Assessment & Plan (07/22/2022 12:02 PM CDT): Under care with psychiatry, currently stable Acute bronchitis due to other specified organism s 03/07/2021 Assessment & Plan (03/11/2021 2:39 PM CONSTRUCTION TECH): Seek care immediately if: You cough up blood. Your lips or fingernails turn blue. You feel like you are not getting enough air when you breathe. Contact your healthcare provider if: You have a fever. Your breathing problems do not go away or get worse. Your cough does not get better within 4 weeks. You have questions or concerns about your condition or care. Self-care: Get more rest. Rest helps your body to heal. Slowly start to do more each day. Rest when you feel it is needed. Avoid irritants in the air. Avoid chemicals, fumes, and dust. Wear a face mask if you must work around dust or fumes. Stay inside on days when air pollution levels are high. If you have allergies, stay inside when pollen counts are high. Do not use aerosol products, such as spray-on deodorant, bug spray, and hair spray. Do not smoke or be around others who smoke. Nicotine and other chemicals in cigarettes and cigars damages the cilia that move mucus out of your lungs. Ask your healthcare provider for information if you currently smoke and need help to quit. E-cigarettes or smokeless tobacco still contain nicotine. Talk to your healthcare provider before you use these products. Drink liquids as directed. Liquids help keep your air passages moist and help you cough up mucus. You may need to drink more liquids when you have acute bronchitis. Ask how much liquid to drink each day and which liquids are best for you. Use a humidifier or vaporizer. Use a cool mist humidifier or a vaporizer to increase air moisture in your home. This may make it easier for you to breathe and help decrease your cough. Fungal infection of skin 03/07/2021 COVID-19 virus infection 03/02/2021 Assessment & Plan (03/11/2021 2:39 PM CONSTRUCTION TECH): Symptoms improving, no fever, no SOB Assessment & Plan (03/02/2021 5:07 PM CONSTRUCTION TECH): Drink fluids.- Use cold clothes around the neck under the arms and groin. Zofran sent for nausea. May need IVF for cooling. Secondary hyperparathyroidism 10/05/2020 Complex regional pain syndro me type 1 of both lower extremities 08/20/2020 Assessment & Plan (01/14/2021 1:16 PM CONSTRUCTION TECH): -Pain pump implant by Dr. Adamson Pain Management Tendinitis of right triceps 07/05/2020 Assessment & Plan (07/05/2020 3:54 PM CDT): Patient has tendinitis of the triceps and medial lateral epicondylar structures with olecranon bursitis. An elbow sleeve may be helpful. She should avoid overuse and repetitive activities. She should avoid vibration such as a dean of girls or any direct pressure on the point of the elbow. Patient was enrolled in physical therapy. Olecranon bursitis of right elbow 07/05/2020 Assessment & Plan (07/05/2020 3:55 PM CDT): The recurring swelling is very reminiscent of olecranon bursitis. She has no evidence of sepsis. An elbow sleeve may be helpful. If she develops significant arthralgias elsewhere serology testing for rheumatoid arthritis lupus or gout may be helpful. She is not have any rheumatoid nodules or tophi present Pure hypercholesterolemia 12/20/2019 Assessment & Plan (12/20/2019 8:56 AM CDT): Start zetia for control of ldl Well adult exam 10/10/2019 Assessment & Plan (10/10/2019 7:41 PM CDT): Reviewed patient's recent blood work results. A1c was 5.3 which is within the normal range. Urinalysis done at her OB GYNs office was also without glucose or protein. Will check lipid panel and compressive metabolic panel as well as TSH. Coronary artery disease 08/23/2018 Assessment & Plan (07/22/2022 11:52 AM CDT): Her cardiac imaging in 2013 showed small fixed anteroseptal defect, she has no chest pains or shortness of breath BMI 32.0-32.9,adult 11/18/2017 Assessment & Plan (01/14/2021 1:15 PM CONSTRUCTION TECH): Weight Loss to Achieve Healthy BMI (18.5-24.9) Eat a variety of vegetables such as dark green, red, and orange vegetables. You can also include canned vegetables low in sodium (salt) and frozen vegetables without added butter or sauces. Eat a variety of fresh fruits , canned fruit in 100% juice, frozen fruit, and dried fruit. Include whole grains. At least half of the grains you eat should be whole grains. Examples include whole-wheat bread, wheat pasta, brown rice, and whole-grain cereals such as oatmeal. Eat a variety of protein foods such as seafood (fish and shellfish), lean meat, and poultry without skin (turkey and chicken). Examples of lean meats include pork leg, shoulder, or tenderloin, and beef round, sirloin, tenderloin, and extra lean ground beef. Other protein foods include eggs and egg substitutes, beans, peas, soy products, nuts, and seeds. Choose low-fat dairy products such as skim or 1% milk or low-fat yogurt, cheese, and cottage cheese. Limit unhealthy fats such as butter, hard margarine, and shortening. Assessment & Plan (04/20/2019 12:30 PM CONSTRUCTION TECH): - BMI too high, counseled on dietary approaches to lowering BMI, exercise approaches to lowering BMI, risk to health due to elevated BMI, healthy BMI level to trend toward. Assessment & Plan (11/18/2017 8:13 AM CDT): - BMI too high, counseled on dietary approaches to lowering BMI, exercise approaches to lowering BMI, risk to health due to elevated BMI, healthy BMI level to trend toward. - she has lost weight with controlling diet and will continue to watch diet. Closed fracture of right ankle with delayed heal ing 11/17/2017 Assessment & Plan (11/17/2017 10:43 AM CDT): - Continue management by Bruce Egan - orthopedist Chronic pain syndrome 08/22/2017 Assessment & Plan (12/20/2019 8:57 AM CDT): Continue treatment with neurology and pain management Assessment & Plan (10/10/2019 7:34 PM CDT): Patient under the care of pain management and has a pain pump which controls most of her symptoms. Assessment & Plan (11/17/2017 10:44 AM CDT): - seeing pain management with good results from pain pump Assessment & Plan (08/22/2017 4:01 AM CDT): Patient has a pain pump with baclofen clonidine and Dilaudid and nerve stimulator. She does not take any oral pills. Asymptomatic bacteriuria 08/22/2017 Assessment & Plan (08/22/2017 4:02 AM CDT): No need for antibiotics at this time. Will continue to monitor. Small bowel obstruction 08/21/2017 Assessment & Plan (08/22/2017 4:00 AM CDT): Patient has been seen by General surgery. Medical management at this time. Patient has NG tube that is draining. She is feeling better at this time. Continue to monitor. Idiopathic chronic pancreatitis 08/21/2017 Assessment & Plan (07/22/2022 11:59 AM CDT): She currently has no symptoms, no pains She has been avoiding foods which have triggered attacks in the past Class 1 obesity due to exces s calories with serious comorbidity and body mass index (BMI) of 33.0 to 33.9 in adult 08/21/2017 Assessment & Plan (05/05/2022 10:51 AM CDT): Weight loss to achieve healthy BMI, diet and exercise counseling provided at today's visit Cystitis 08/21/2017 Acute cystitis with hematuria Splenic lesion Iron deficiency anemia Hypertension Assessment & Plan (07/22/2022 12:03 PM CDT): B/p goal <140/90 Today - 138/84 Continue - monitoring Assessment & Plan (01/15/2022 1:51 PM CONSTRUCTION TECH): B/p goal <140/90 Today - 122/76 Continue - monitoring - currently stable Assessment & Plan (04/03/2020 10:43 AM CONSTRUCTION TECH): Blood pressure a little elevated today at 154/93 Continue current medications for blood pressure Will assess at next appointment if continues to be elevated she will need additional medication Assessment & Plan (12/20/2019 8:56 AM CDT): - continue current medications with any medication changes identified today for hypertension control - make routine follow ups as scheduled for blood pressure monitoring - labs as ordered to check end organ function - increase raw vegetables in diet - increase activity as tolerated Assessment & Plan (04/20/2019 12:29 PM CONSTRUCTION TECH): Continue current medication Condition stable Resolved Problems Problem Noted Date Diagnosed Date Resolved Date Fungal infection of lung 03/07/2021 BMI 34.0-34.9,adult 11/17/2017 01/15/20 21 Assessment & Plan (10/10/2019 7:36 PM CDT): BMI Follow-up includes: nutrition counseling, exercise counseling and education provided. Discussed prescription plus diet plan. Patient will try 1500 calorie diet and continue with exercise program. If patient not able to bring weight down with lifestyle changes will consider medical therapy. Assessment & Plan (11/17/2017 10:41 AM CDT): - BMI too high, counseled on dietary approaches to lowering BMI, exercise approaches to lowering BMI, risk to health due to elevated BMI, healthy BMI level to trend toward. Encounters Date Type Department Care Team Description 07/20/2024 [facility] Care [address] [id number] Hannah Riddle 07/20/2024 [facility] [address] [address] Hannah Riddle 06/24/[address] [address] Hannah Riddle Unsuccessful Phone Call 3 ([facility] appt) 05/25/2024 Telephone [facility] Care Organization [address] [place] [id number] Sandy Hall MA Unsuccessful Phone Call 2 ([facility] AWV) 05/24/2024 Telephone Family [facility] at [address] [phone] Mamie Calero Unsuccessful Phone Call 1 ([facility] Est Patient) from Last 3 Months Immunizations Immunization Administration Dates Next Due Influenza, Trivalent, IM (MDV) 12/20/2013 Influenza, Unspecified 01/27/2022(Deferr ed: Patient Refused),01/27/2022(Deferred: Patient Refused),01/14/2021(Deferred: Patient Refused),01/14/2021(Deferred: Patient Refused),11/17/2017(Deferred: Patient Refused),11/23/2016(Deferred: Patient Refused) Tdap 01/05/2022 Surgical History Surgery Date Site/Laterality Comments BACK SURGERY 7 back surgeries APPENDECTOMY SPINAL CORD STIMULATOR IMPLANT 02/24/2008 - 02/22/2009 Right battery change in 2017 INTRATHECAL PUMP IMPLANTATION 01/23/2014 - 02/22/2014 Right COLON SURGERY Medical History Medical History Date Comments Hx Other Medical back surgeries Arthritis Coronary artery disease History of transfusion Hypertension RSD (reflex sympathetic dystrophy) Jenny syndrome (HCC) pain syndro me Fibromyalgia fibromyalgia Motion sickness Premature baby PONV (postoperative nausea and vomiting) Mild intermittent asthma without complication Family History Medical History Relation Name Comments Heart disease Father Macular degeneration Father Lupus Mother Macular degeneration Mother Macular degeneration Paternal Grandmother Breast cancer Neg Hx Endometrial cancer Neg Hx Ovarian cancer Neg Hx Thyroid cancer Neg Hx Relation Name Status Comments Father Mother Alive Paternal Grandmother Social History Tobacco Use Types Packs/Day Years Used Date Smoking Tobacco: Never Smokeless Tobacco: Never Tobacco Cessation:Counseling Given: Not Answered Alcohol Use Standard Drinks/Week Comments Not Currently 0 (1 standard drink = 0.6 oz pur e alcohol) Social Connection and Isolat ion Panel [NHANES] Answer Date Recorded In a typical week, how many times do you talk on the phone with family, friends, or neighbors? More than three times a week 05/02/2021 How often do you get togethe r with friends or relatives? More than three times a week 05/02/2021 How often do you attend chur ch or quaker services? Never 05/02/2021 Do you belong to any clubs o r organizations such as pentecostal groups, unions, fraternal or athletic groups, or school groups? No 05/02/2021 How often do you attend meet ings of the clubs or organizations you belong to? Never 05/02/2021 Are you , , di vorced, , never , or living with a partner? Living with partner 05/02/2021 Overall Financial Resource Strain (CARDIA) Answe r Date Recorded How hard is it for you to pa y for the very basics like food, housing, medical care, and heating? Not hard at all 05/02/2021 PHQ-2 Answer Date Recorded PHQ-2 Total Score (If total score is 3 or more points, staff should administer the PHQ-9) 0 07/22/2022 PRAPARE - Transportation Answer Date Re corded In the past 12 months, has l ack of transportation kept you from medical appointments or from getting medications? No 04/23 In the past 12 months, has l ack of transportation kept you from meetings, work, or from getting things needed for daily living? No 05/02/2021 Housing Stability Vital Sign Answer Kian e Recorded In the last 12 months, was t here a time when you were not able to pay the mortgage or rent on time? No 05/02/2021 In the last 12 months, how many places have you lived? 1 05/02/2021 In the last 12 months, was t here a time when you did not have a steady place to sleep or slept in a prison (including now)? No 05/02/2021 Personal Safety Answer Date Recorded Have you ever been in or are you currently in a harmful physical or emotional relationship or is someone making you feel afraid or unsafe? 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 Not on file Not on file Not on file Obstetrics History Para Term AB IAB SAB Ectopic Multiple Livin g Live Births 5 1 1 4 0 4 0 1 1 Date Outcome GA Total Labor Labor/2nd/3rd Weight Sex Type Anes PTL Jennifer A1 A5 Name Clin SAB SAB SAB SAB SAB SAB 3 Term 37w 0d 3.26 kg (7 lb 3 oz) F Vag-S pont None Living Complications:None 4 SAB D&C Comments Induced for PIH at 37 weeks. Last Filed Vital Signs Vital Sign Reading Time Taken Comments Blood Pressure 145/78 12/30/2022 11:30 AM CONSTRUCTION TECH Pulse 53 12/30/2022 11:30 AM CONSTRUCTION TECH Temperature 36.8 C (98.3 F) 12/30/2022 5:24 AM CONSTRUCTION TECH Respiratory Rate 18 12/30/2022 5:24 AM CONSTRUCTION TECH Oxygen Saturation 100% 12/30/2022 11:30 AM CONSTRUCTION TECH Inhaled Oxygen Concentration - - Weight 90.3 kg (199 lb) 12/30/2022 5:24 AM CONSTRUCTION TECH Height 170.2 cm (5' 7) 12/30/2022 5:24 AM CONSTRUCTION TECH Body Mass Index 31.17 12/30/2022 5:24 AM CONSTRUCTION TECH Plan of Treatment Health Maintenance Due Date Last Done Comments Colon Cancer Screening-Colonoscopy 1970 Hepatitis B Screening 10/29/1989 Pneumococcal vaccine <65 (1 of 2 - PCV) 10/29/1990 Zoster Vaccine (1 of 2) 10/29/2021 Cervical Cancer Screening 03/20/2022 03/20/2021 Breast Cancer Screening-Mammogram 04/05/2022 022, 04/27/2019 Depression Screening 07/23/2023 07/22/2022, 07/15/2021, 03/07/2021, Additional history exists Regular Well Visit/Exam 18-64 08/08/2023, 07/22/2022, 07/15/2021, Additional history exists Influenza Vaccine (#1) 2024 12/20/2013 DTaP/Tdap/Td Vaccine (2 - Td or Tdap) 01/06/2032 01/05/2022 Hepatitis C Screening Completed 04/05/2021 Medical Devices Implanted Type Area Screw Eye Assembler Device Identifier Shelf Expiration Date Model / Serial / Lot Medtronic Inc 8780 Ascenda 4fr .5mm 114cm 86cm 2 Piece Connector Pin Flexible Closed - [id number] - [id number] Implanted:Qty: 1 on 10/19/2020 by Lambert Adamson MD at [facility] Catheter Right: Abdomen Medtronic Inc 09/06/2022 8780 / [id number] / Medtronic Neuro 8637-20 Synchromed Ii .78in [place] Filter Mesh Pouch Programmable - [id number] - [id number] Implanted:Qty: 1 on 10/19/2020 by Lambert Adamson MD at [facility] Intrathecal Pain Pump Right: Abdomen Medtronic Inc 03/22/2022 8637-20 / [id number] / Procedures Procedure Name Priority Date/Time Associated Diagnosis Comments HEPATITIS C ANTIBODY Routine 04/05/2021 10:29 AM CONSTRUCTION TECH Screening examination for venereal disease Unprotected sexual intercourse SCREENING MAMMOGRAM BILATERAL W PERRY Schedule Routine, Read Routine (OP Routine) 04/05/2021 9:47 AM CONSTRUCTION TECH Encounter for screening mammogram for malignant neoplasm of breast PAP AND HIGH RISK HPV, REFLEX TO GENOTYPING Routine 03/20/2021 9:43 AM CONSTRUCTION TECH Screening for malignant neoplasm of cervix from Last 3 Months or Most Recently Relevant to Health Maintenance Results * Hepatitis C antibody (04/05/2021 10:29 AM CONSTRUCTION TECH) Hep C Ab Nonreactive Nonreactive PAULIE GIRALDO Comment: Interpretive Data Nonreactive: Antibodies to HCV not detected. Does NOT exclude the possibility of recent exposure to HCV. Equivocal: Equivocal for HCV antibodies. Supplemental molecular testing will be automatically performed to determine infection status in accordance with current CDC screening recommendations. Reactive: Positive for HCV antibodies. This may represent current or past HCV infection. Supplemental molecular testing will be automatically performed to determine current infection status in accordance with current CDC screening recommendations. Interpretive data was last revised on 2019. Blood 04/05/2021 10:2 9 AM CONSTRUCTION TECH 04/05/2021 12:20 PM CONSTRUCTION TECH Gilda Christian NP LAB MICROBIOLOGY - GENE [facility] ORDERABLES Edited Result - Final PAULIE GIRALDO [id number] Department [place] [address] * (ABNORMAL) Screening Mammogram Bilateral W Perry (04/05/2021 9:47 AM CONSTRUCTION TECH) Anatomical Region Laterality Modality Breast Bilateral Mammography 04/05/2021 10:2 2 AM CONSTRUCTION TECH Impressions 04/05/2021 10:22 AM CONSTRUCTION TECH BI-RADS Category 0, incomplete needs additional imaging evaluation of the right breast. Recommendation Right diagnostic mammogram and Limited ultrasound. Electronically signed by: Felisa Abraham M.D. Narrative 04/05/2021 10:22 AM CONSTRUCTION TECH Examination: SCREENING MAMMOGRAM BILATERAL W PERRY Order Date: 04/05/2021 9:30 AM History: Routine screening Comparison: 04/27/2019, 01/14/2016 Technique Craniocaudal and mediolateral oblique views of both breasts were obtained utilizing full field 2 D and digital breast tomosynthesis [DBT] images were obtained. CAD was utilized. Breast parenchymal composition. There are scattered areas of fibroglandular density. Findings 0.7 cm asymmetric density in the right lower breast suggest diagnostic mammogram/ultrasound. There is no suspicious clustered microcalcification or architectural distortion. This examination has been subjected to R2/CAD analysis. us Self Screening Mammogram IMG MAMMO PROCEDURES Fi nal Result * Pap and High Risk HPV, reflex to Genotyping (03/20/2021 9:43 AM CONSTRUCTION TECH) Swab (Pap test) 03/20/2021 9 :43 AM CONSTRUCTION TECH 03/20/2021 9:43 AM CONSTRUCTION TECH Narrative PATHOLOGY CH - 03/22/2021 11:19 AM CONSTRUCTION TECH [facility] Department of Pathology [address] [place] [id number] Final Report with Addendum Note to Patients: This report may contain a detailed description of human tissue sent by a health care provider to the laboratory for pathologic evaluation. The content of this report is essential for diagnosis and may provide important critical findings. This information may be unfamiliar to patients to review without a medical professional present. It is advised that the patient review this report in the presence of a health care provider who can answer questions and explain the details. Patient Name: PRADEEP BLACKWELL Address: [address] [place] [address] Gender: F : 1970 (Age: 50) Service: Laboratory Location: Lab [facility] #: [id number] Patient Type: Ref Lab Taken: 03/20/2021 Received: 03/20/2021 Accessioned:: 03/21/2021 Reported: 03/22/2021 Physician(s): TAMELA Gonzales WHNP Diagnosis: Source of Specimen: SCREENING THIN PREP IMAGED PAP w/ HPV Specimen Adequacy: - Satisfactory for evaluation; endocervical/transformation zone component present General Category: - Negative for intraepithelial lesion or malignancy Interpretation/Results: - Numerous RBC's LIANNE Dawn(ASCP) Report Electronically Reviewed and Signed Out By YASMINE DawnASCP) 03/22/2021 11:19:14 Addenda: HPV Test Interpretation NEGATIVE for types 16, 18, 31, 33, 35, 39, 45, 51, 52, 56, 58, 59, 66 and 68. Test performed utilizing Gen-Probe Aptima assay. LIANNE Yan(ASCP) Report Electronically Reviewed and Signed Out By YASMINE YanASCP) 03/22/2021 11:00:23 Specimen(s) Received: A: SCREENING THIN PREP IMAGED PAP w/ HPV Clinical History: Last Menstrual Period: 03/02/2021 Menstrual History: Regular Cycles Contraceptive History: Oral Contraceptives The Pap test is a screening test used to aid in the detection of cervical cancer and its precursors. It should not be the sole means by which malignant and premalignant lesions are diagnosed. Both false negative and false positive results may occur. It also has poor sensitivity for the detection of endometrial lesions and should not be used to evaluate suspected endometrial abnormalities. For these reasons it is most important to obtain Pap tests at regular intervals. The performance characteristics of some immunohistochemical stains, fluorescence in-situ hybridization tests and immunophenotyping by flow cytometry cited in this report (if any) were determined by the Surgical Pathology Department at [facility] as part of an ongoing software quality assurance analyst program and in compliance with federally mandated regulations drawn from the Clinical Laboratory Improvement Act of 1988 (CLIA '88). Some of these tests rely on the use of analyte specific reagents and are subject to specific labeling requirements by the US Food and Drug Administration. Such diagnostic tests may only be performed in a facility that is certified by the Department of Health and Human Services as a high complexity laboratory under CLIA '88. The FDA has determined that such clearance or approval is not necessary. This test is used for clinical purposes. It should not be regarded as investigational or for research. Nevertheless, federal rules concerning the medical use of analyte specific reagents require that the following disclaimer be attached to the report: This test was developed and its performance characteristics determined by the Surgical Pathology Department [facility]. It has not been cleared or approved by the U. S. Food and Drug Administration. Gilda Christian NP LAB CYTOLOGY ORDERABLES Final Result Performing Organization Address City/State/ZIP Co ct Phone Number PATHOLOGY [address] [place] [address] from Last 3 Months or Most Recently Relevant to Health Maintenance [place] [place] [address] HEALTHCARE Advance Directives For more information, please contact: [phone] * Full Code (Latest Code Status on File) Date Activated Date Inactivated Comments 08/22/2017 4:00 AM 08/25/2017 6:11 PM Care Teams Global Marketing Operations Manager Relationship Specialty [place] [address] [place] [address] PCP - General Family Medicine 01/15/21
--- OUTSIDE RECORDS SUMMARY | 2024-08-23 19:18 | XMS_ITS | Clinical Summary ---
Author Organization [facility] Address [address] [place] [address] Care Team Providers Care Contract Post Office Clerk Name Role Phone Gonzalez Webb DO Primary Care Provider [phone] Source Comments [facility] Affiliates and Associated Physician Practices is amultiple site organization consisting of ambulatory clinics and hospital sitesin [place], [place], [place] and [place]. This disclosure is being madepursuant to the Care Everywhere program and may not contain all information available regarding this patient. Last updated 17.[facility] Allergies Active Allergy Reactions Criticality Noted Date Comments Aspirin Nausea and/or Vomiting Low 09/19/2011 Celecoxib Diarrhea,Nausea and/or Vomiting Low 05/2012 Ciprofloxacin Rash Medium 02/27/2012 Codeine Rash Medium 09/19/2011 Levofloxacin Rash Medium 09/19/2011 Meloxicam Rash Medium 06/05/2016 Morphine Rash Medium 02/27/2012 Nitrofurantoin Unknown Low 09/19/2011 Not sure Penicillins Rash Medium 09/19/2011 Sulfa Drugs Other Medium 09/19/2011 Medications * Be aware that medications may not be up to date on this document. Alwaysverify current medications with the patient. ondansetron (ZOFRAN) 4 MG tablet Take 1 tablet by mouth every 4 hours as needed for Nausea/Vomi ting 10 tablet 06/27/2017 Active Social History Tobacco Use Types Packs/Day Years Used Date Smoking Tobacco: Never Assessed Comments Unknown Sex and Gender Information Value Date Recorded Sex Assigned at Not on file Legal Sex Female 2:13 PM CDT Gender Identity Not on file Sexual Orientation Not on file Last Filed Vital Signs Vital Sign Reading Time Taken Comments Blood Pressure 130/83 06/27/2017 4:49 PM CDT Pulse 60 06/27/2017 4:49 PM CDT Temperature 36.8 C (98.3 F) 06/27/2017 4:49 PM CDT Respiratory Rate 14 06/27/2017 4:49 PM CDT Oxygen Saturation 96% 06/27/2017 4:49 PM CDT Inhaled Oxygen Concentration - - Weight 86.2 kg (190 lb) 06/27/2017 4:49 PM CDT Height 170.2 cm (5' 7) 06/27/2017 4:49 PM CDT Body Mass Index 29.76 06/27/2017 4:49 PM CDT Plan of Treatment Health Maintenance Due Date Last Done Comments COLOGUARD (AGES 45-75) - COL ON CA SCREENING 1970 COLON MONITORING 1971 COLONOSCOPY - COLON CA SCREENING 1971 CT COLONOGRAPHY - COLON CA SCREENING 1971 Colorectal Cancer Screening 1971 FIT - COLON CA SCREENING 1971 FLEX SIG - COLON CA SCREENING 1971 LIPID TESTING 1970 MAMMOGRAM 1971 HIV SCREENING 10/29/1986 HEPATITIS C SCREENING 10/25/1989 DTAP/TDAP/TD VACCINES (1 - Tdap) 10/29/1990 HEPATITIS B VACCINE (1 of 3 - 19+ 3-dose series) 10/29/1990 PNEUMOCOCCAL VACCINE 50+ (1 of 1 - PCV) 10/29/2021 ZOSTER VACCINE (1 of 2) 10/29/2021 COVID-19 VACCINE (1 - 2023-2 5 season) 2023 DEPRESSION SCREENING 02/24/2024 INFLUENZA VACCINE (Season Ended) 2024 HIB VACCINE Aged Out No longer eligi ble based on patient's age to complete this topic HPV VACCINE Aged Out No longer eligi ble based on patient's age to complete this topic MENINGOCOCCAL (Group B) VACC INE SHARED DECISION-MAKING Aged Out No longer eligibl e based on patient's age to complete this topic MENINGOCOCCAL GROUPS A/C/Y/W VACCINE Aged Out No longer eligible b ased on patient's age to [place] [address] Care Teams Contract Post Office Clerk Relationship Specialty Start Date End Date Gonzalez Webb DO PCP - General 11/16/19
--- OUTSIDE RECORDS SUMMARY | 2024-08-23 19:18 | XMS_ITS | Referral Summary ---
Author Organization [facility] Address [address] [place] [address] Care Team Providers Care Java Portal Developer Name Role Phone Ivan Villa NP Primary Care Provider [phone] Encounters Date Type Department Care Team Description 07/20/2024 [facility] Quality [facility] Accountable Care Organization [address] [place] [address] Venkatesh, Hannah 07/20/2024 [facility] Quality [facility] Care Organization [address] [place] [address] [place], Hannah 06/24/2024 Telephone [facility] Care Organization [address] [place] [address] [place], Hannah Unsuccessful Phone Call 3 (Essence appt) 05/25/2024 Telephone [facility] Care Organization [address] [place] [address] Sandy Hall MA Unsuccessful Phone Call 2 (Essence AWV) 05/24/2024 Telephone Family Care at [address] [place] [address] Mamie Calero Unsuccessful Phone Call 1 (Essence Est Patient) from Last 3 Months Allergies Active Allergy Reactions Criticality Noted Date [...] 01/27/2022 Assessment & Plan (01/27/2022 8:27 AM WELDING MACHINE OPERATOR ELECTROSLAG): 5 sutures removed, patient tolerated well Wound [...] affective 05/30/2021 Overview (05/30/2021): Dr. Mino Evans [phone] (anxiety/depression) Assessment & Plan (07/22/2022 12:02 PM CDT): Under care with psychiatry, currently stable Acute bronchitis due to other specified organism s 03/07/2021 Assessment & Plan (03/11/2021 2:39 PM WELDING MACHINE OPERATOR ELECTROSLAG): Seek care immediately if: You cough up [...] 03/02/2021 Assessment & Plan (03/11/2021 2:39 PM WELDING MACHINE OPERATOR ELECTROSLAG): Symptoms improving, no fever, no SOB Assessment & Plan (03/02/2021 5:07 PM WELDING MACHINE OPERATOR ELECTROSLAG): Drink fluids.- Use cold clothes around the neck under the arms and groin. Zofran sent for nausea. May need IVF for cooling. Secondary hyperparathyroidism 10/05/2020 Complex regional pain syndro me type 1 of both lower extremities 08/20/2020 Assessment & Plan (01/14/2021 1:16 PM WELDING MACHINE OPERATOR ELECTROSLAG): -Pain pump implant by Dr. Adamson Pain [facility] Tendinitis of right triceps 07/05/2020 Assessment & Plan (07/05/2020 3:54 PM CDT): Patient has tendinitis of the triceps and medial lateral epicondylar structures with olecranon bursitis. An elbow sleeve may be helpful. She should avoid overuse and repetitive activities. She should avoid vibration such as a white washer or any direct pressure on the point [...] 11/18/2017 Assessment & Plan (01/14/2021 1:15 PM WELDING MACHINE OPERATOR ELECTROSLAG): Weight Loss to Achieve Healthy BMI (18.5-24.9) [...] shortening. Assessment & Plan (04/20/2019 12:30 PM WELDING MACHINE OPERATOR ELECTROSLAG): - BMI too high, counseled on dietary [...] monitoring Assessment & Plan (01/15/2022 1:51 PM WELDING MACHINE OPERATOR ELECTROSLAG): B/p goal <140/90 Today - 122/76 Continue - monitoring - currently stable Assessment & Plan (04/03/2020 10:43 AM WELDING MACHINE OPERATOR ELECTROSLAG): Blood pressure a little elevated today at [...] tolerated Assessment & Plan (04/20/2019 12:29 PM WELDING MACHINE OPERATOR ELECTROSLAG): Continue current medication Condition stable Resolved Problems [...] BMI, healthy BMI level to trend toward. Immunizations Immunization Administration Dates Next Due Influenza, Trivalent, IM (MDV) 12/20/2013 Influenza, Unspecified 01/27/2022(Deferr ed: Patient Refused),01/27/2022(Deferred: Patient Refused),01/14/2021(Deferred: Patient Refused),01/14/2021(Deferred: Patient Refused),11/17/2017(Deferred: Patient Refused),11/23/2016(Deferred: Patient Refused) Tdap 01/05/2022 Social History Tobacco Use Types Packs/Day Years [...] often do you attend chur ch or orthodoxy services? Never 05/02/2021 Do you belong to any clubs o r organizations such as sikh groups, unions, fraternal or athletic groups, or [...] place to sleep or slept in a penitentiary (including now)? No 05/02/2021 Personal Safety Answer Date Recorded Have you ever been in or are you currently in a harmful physical or emotional relationship or is someone making you feel afraid or unsafe? 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 Not on file Not on file Not on file Last Filed Vital Signs Vital Sign Reading Time Taken Comments Blood Pressure 145/78 12/30/2022 11:30 AM WELDING MACHINE OPERATOR ELECTROSLAG Pulse 53 12/30/2022 11:30 AM WELDING MACHINE OPERATOR ELECTROSLAG Temperature 36.8 C (98.3 F) 12/30/2022 5:24 AM WELDING MACHINE OPERATOR ELECTROSLAG Respiratory Rate 18 12/30/2022 5:24 AM WELDING MACHINE OPERATOR ELECTROSLAG Oxygen Saturation 100% 12/30/2022 11:30 AM WELDING MACHINE OPERATOR ELECTROSLAG Inhaled Oxygen Concentration - - Weight 90.3 kg (199 lb) 12/30/2022 5:24 AM WELDING MACHINE OPERATOR ELECTROSLAG Height 170.2 cm (5' 7) 12/30/2022 5:24 AM WELDING MACHINE OPERATOR ELECTROSLAG Body Mass Index 31.17 12/30/2022 5:24 AM WELDING MACHINE OPERATOR ELECTROSLAG Plan of Treatment Not on file Medical Devices Implanted Type Area Coding Specialist Home Health Device Identifier Shelf Expiration Date Model / Serial / Lot [employer] Inc 8780 Ascenda 4fr .5mm 114cm 86cm 2 Piece Connector Pin Flexible Closed - [id number] - [id number] Implanted:Qty: 1 on 10/19/2020 by Lambert Adamson MD at [facility] Catheter Right: Abdomen [employer] Inc 09/06/2022 8780 / [id number] / Medtronic Neuro 8637-20 Synchromed Ii .78in [place] Filter Mesh Pouch Programmable - [id number] - [id number] Implanted:Qty: 1 on 10/19/2020 by Lambert Adamson MD at [facility] Intrathecal Pain Pump Right: Abdomen [employer] Inc 03/22/2022 8637-20 / [id number] / Procedures Procedure Name Priority Date/Time Associated Diagnosis Comments HEPATITIS C ANTIBODY Routine 04/05/2021 10:29 AM WELDING MACHINE OPERATOR ELECTROSLAG Screening examination for venereal disease Unprotected sexual intercourse SCREENING MAMMOGRAM BILATERAL W PERRY Schedule Routine, Read Routine (OP Routine) 04/05/2021 9:47 AM WELDING MACHINE OPERATOR ELECTROSLAG Encounter for screening mammogram for malignant neoplasm of breast PAP AND HIGH RISK HPV, REFLEX TO GENOTYPING Routine 03/20/2021 9:43 AM WELDING MACHINE OPERATOR ELECTROSLAG Screening for malignant neoplasm of cervix from Last 3 Months or Most Recently Relevant to Health Maintenance Results * Hepatitis C antibody (04/05/2021 10:29 AM WELDING MACHINE OPERATOR ELECTROSLAG) Hep C Ab Nonreactive Nonreactive PAULIE GIRALDO [...] on 2019. Blood 04/05/2021 10:2 9 AM WELDING MACHINE OPERATOR ELECTROSLAG 04/05/2021 12:20 PM WELDING MACHINE OPERATOR ELECTROSLAG us Gilda Christian NP LAB MICROBIOLOGY - GENE RAL ORDERABLES Edited Result - Final PAULIE GIRALDO [address] Department [place] [address] * (ABNORMAL) Screening Mammogram Bilateral W Perry (04/05/2021 9:47 AM WELDING MACHINE OPERATOR ELECTROSLAG) Anatomical Region Laterality Modality Breast Bilateral Mammography 04/05/2021 10:2 2 AM WELDING MACHINE OPERATOR ELECTROSLAG Impressions 04/05/2021 10:22 AM WELDING MACHINE OPERATOR ELECTROSLAG BI-RADS Category 0, incomplete needs additional imaging evaluation of the right breast. Recommendation Right diagnostic mammogram and Limited ultrasound. Electronically signed by: Felisa Abraham M.D. Narrative 04/05/2021 10:22 AM WELDING MACHINE OPERATOR ELECTROSLAG Examination: SCREENING MAMMOGRAM BILATERAL W PERRY Order [...] HPV, reflex to Genotyping (03/20/2021 9:43 AM WELDING MACHINE OPERATOR ELECTROSLAG) Swab (Pap test) 03/20/2021 9 :43 AM WELDING MACHINE OPERATOR ELECTROSLAG 03/20/2021 9:43 AM WELDING MACHINE OPERATOR ELECTROSLAG Narrative PATHOLOGY CH - 03/22/2021 11:19 AM WELDING MACHINE OPERATOR ELECTROSLAG [facility] Department of [facility]ology [address] [place] [address] Final Report with Addendum Note to Patients: [...] the details. Patient Name: PRADEEP BLACKWELL Address: [address] [place] [address] Gender: F : 1970 (Age: 50) Service: Laboratory Location: Lab [facility] #: [id number] Patient Type: Ref Lab Taken: 03/20/2021 Received: 03/20/2021 Accessioned:: 03/21/2021 Reported: 03/22/2021 Physician(s): TAMELA Gonzales WHNP Diagnosis: Source of Specimen: SCREENING THIN PREP IMAGED PAP w/ HPV Specimen Adequacy: - Satisfactory for evaluation; endocervical/transformation zone component present General Category: - Negative for intraepithelial lesion or malignancy Interpretation/Results: - Numerous RBC's LIANNE Dawn(ASCP) Report Electronically Reviewed and Signed Out By YASMINE DawnASCJluis) 03/22/2021 11:19:14 Addenda: HPV Test Interpretation NEGATIVE [...] determined by the Surgical Pathology Department at [facility] as part of an ongoing director supplier quality program and in compliance with federally mandated [...] characteristics determined by the Surgical Pathology Department [facility]. It has not been cleared or approved by the U. S. Food and Drug Administration. Gilda Christian NP LAB CYTOLOGY ORDERABLES Final Result PATHOLOGY [address] [place] [address] from Last 3 Months or Most Recently Relevant to Health Maintenance Insurance [id number] [place] [address] [facility]CARE [facility] Advance Directives For more information, please contact: [phone] * Full Code (Latest Code Status on File) Date Activated Date Inactivated Comments 08/22/2017 4:00 AM 08/25/2017 6:11 PM Care Teams Java Portal Developer Relationship Specialty [place] [address] [place] [address] PCP - General Family Medicine 01/15/21
--- OUTSIDE RECORDS SUMMARY | 2024-08-23 19:18 | XMS_ITS | Encounter Summary ---
Author Organization [facility] Healthcare Address [address] [place] [address] Care Team Providers Care Drafter Construction Name Role Phone Ivan Villa NP Primary Care Provider [phone] Encounter Details Date Type Department Care Team (Late st Contact Info) Description 09/07/2023 Telephone Family Care at [address] [address] Ivan Villa NP [address] [place] [address] [address] [place] [address] Social History Tobacco Use Types Packs/Day Years Used Date Smoking Tobacco: Never Smokeless Tobacco: Never Alcohol Use Standard Drinks/Week Comments Not Currently [...] often do you attend chur ch or yarsanism services? Never 05/02/2021 Do you belong to any clubs o r organizations such as confucianist groups, unions, fraternal or athletic groups, or [...] place to sleep or slept in a chcf (including now)? No 05/02/2021 Personal Safety Answer Date Recorded Have you ever been in or are you currently in a harmful physical or emotional relationship or is someone making you feel afraid or unsafe? 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
--- OUTSIDE RECORDS SUMMARY | 2024-08-23 19:18 | XMS_ITS | Data Portability ---
Author Organization [facility] Address [address] [facility] [address] [place] [address] Care Team Providers Care Private Tutors And Teachers Name Role Phone FREDY TEJADA Referring Provider Assessment No assessment recorded. Plan of Treatment Reminders Order Date Submit Date Provider Last Modified By Organization Details Last Modified Time Details Appointments None record ed. Lab None record ed. Referral None record ed. Procedures None record ed. Surgeries None record ed. Imaging None record ed. Medication Orders None record ed. Patient TargetsNo targets recorded. Patient InstructionsNo instructions recorded. Reason for Referral None Reported. Procedures Surgical History Date Name Laterality Status Provider Name and Address Organization Details Recorded Time 07/03/2017 Sleep Study completed Subhash Lopezlalo [facility] 07/06/2017 13:46:42 Imaging Results None recorded. Procedure Notes None recorded. Medical Equipment None Reported. Vitals Date Recorded Body height Body mass index (BMI) Body weight Provider Name and Address Organization Details Last Updated DateTime 07/03/2017 170.18 cm 30.1 kg/m2 16093.74 g Carolynn Tavarez [facility] 07/03/2017 12:54:40 Social History None recorded. Functional Status None recorded. Mental Status None recorded. Family History Nothing Reported. Medical History No medical history recorded. Gynecological HistoryNo gynecological history recorded. Obstetrics History GPAL:G 0 P 0 0 0 0 Past Encounters Encounter ID Performer Location Encounter Start Date Encounter Closed Date Diagnosis/Indication Diagnosis SNOMED-CT Code Diagnosis ICD10 Code Diagnosis Note [id number] [facility], [facility] (30) [address] [facility] [address] [place] [address] 07/03/2017 12:38:24 07/06/2017 13:47:38 Obstructive sleep apnea of adult 2424864498 103 G47.33 Health Concerns Section Related Observation LastModified by Organization Detai ls LastModified Time None Recorded Concern Status LastModified by Organization Details LastModified Time None Recorded Advance Directives Directive None Recorded Payers Insurance Date Sequence Insurance Name Policy Number Policy Pope Covered Member ID Pope Member ID Guarantor Name 07/03/2017 1 [facility] (MEDICARE REPLACEMENT HMO) [id number] Norma Castro [id number] Norma Castro Notes Date Note Type Note Provider Name and Address Organization Details Recorded Time 07/03/2017 text/html HST SetupReporte d [email or web address] set upDemonstrated to patient how to set up Home Sleep Test Device. The patient was able to return demonstration with out difficulty.; The patient is returning the device the following morning. Pelon Lazo MD [facility] [id number] [address] [place] [address], [phone] 07/06/2017 13:54:40 OBGyn Episode No OBEpisode recorded.
[2024-08-23 19:44] VITALS: BP 149/103; PULSE 73; RESP 18; TEMP 37.1; O2SAT 97
--- NOTE | 2024-08-23 20:21 | ED_ITS ---
HPI - Extremity Injury (Upper) General Chief Complaint: Extremity Injury, Upper Stated Complaint: left arm pain/clot Time Seen by Provider: 08/23/24 20:09 History of Present Illness HPI narrative: 53-year-old female with history of lupus, fibromyalgia, complex regional pain syndrome, degenerative joint disease. Patient presents to the emergency department for evaluation of left upper extremity swelling and pain. She went to urgent care this afternoon for the symptoms and they were concerned about potential blood clot and DVT especially his she has a history of DVTs in her legs remotely in the past. Not presently on any anticoagulation. No recent medical problems, instrumentation, IVs or any trauma to the hand or arm. Does have some swelling and pain in the left upper extremity. No chest pain or difficulty in breathing, no nausea, vomiting, abdominal pain, back pain, fever chills. Was referred from urgent care to obtain workup for DVT. Related Data Home Medications ?Medication ?Instructions ?Recorded ?Confirmed ?Last Taken ?Type ezetimibe 10 mg tablet 10 mg PO DAILY 01/05/22 01/28/23 Unknown History norethindrone 1 mg-ethinyl 1 tablet PO DAILY 01/05/22 01/28/23 Unknown History estradiol 20 mcg (21)-iron 75 mg (7) tablet (03/14 (28)) pregabalin 200 mg capsule 200 mg PO DIRECTED 01/05/22 01/28/23 Unknown History Allergies Allergy/AdvReac Type Severity Reaction Status Date / Time aspirin AdvReac Intermediate Vomiting Verified 08/23/24 19:50 celecoxib AdvReac Intermediate Vomiting Verified 08/23/24 19:50 codeine AdvReac Intermediate Vomiting Verified 08/23/24 19:50 levofloxacin AdvReac Intermediate Vomiting Verified 08/23/24 19:50 Sulfa (Sulfonamide AdvReac Intermediate Vomiting Verified 08/23/24 19:50 Antibiotics) morphine AdvReac Mild RASH Verified 08/23/24 19:50 Penicillins AdvReac Mild RASH Verified 08/23/24 19:50 CIPROFLOXACIN HCL AdvReac Intermediate Vomiting Uncoded 08/23/24 19:50 NITROFURANTOIN MACROCRYSTAL AdvReac Intermediate Vomiting Uncoded 08/23/24 19:50 Review of Systems 2 Review of Systems: As reviewed above in HPI COUNT INCLUDES THE [facility] Past Medical History Medical History DJD (degenerative joint disease) Complex regional pain syndrome Fibromyalgia Sympathetic reflex dystrophy Social History Social History Smoking status: Never smoker Alcohol intake: never Gender identity (if verbalized by the patient): Male Exam 2 Narrative: GENERAL: [Well-appearing, well-nourished, and in no acute distress.] HEAD: [Normocephalic, atraumatic.] EYES: [PERRLA and EOMI.] ENT: Nares clear, no rhinorrhea or epistaxis. Mucous membranes moist. NECK: Supple. CHEST: [Clear to auscultation. No respiratory distress.] HEART: [Regular rate and rhythm]. No murmur heard. [Normal peripheral pulses.] ABDOMEN: [Soft, nondistended], [nontender], [No rigidity or guarding] EXTREMITIES: Left upper extremity with some mild swelling compared to the right upper extremity with some tenderness to palpation reproducible in the left anterior upper arm. No overlying skin changes such as redness or ecchymosis, pulses are 2+ bilaterally, normal range of motion, normal sensation and good distal neuro vasculature. SKIN: Warm, dry, no rash. NEURO: [No focal deficits]. Alert and oriented [x3.] PSYCH: [Normal mood and affect.] Course Vital Signs Vital signs: Vital Signs Temperature 37.1 C 08/23/24 19:44 Pulse Rate 73 08/23/24 19:44 Respiratory Rate 18 08/23/24 19:44 Blood Pressure 149/103 H 08/23/24 19:44 Pulse Oximetry 97 08/23/24 19:44 Oxygen Delivery Room Air 08/23/24 19:44 Temperature 37.1 C 08/23/24 19:44 Pulse Rate 73 08/23/24 19:44 Respiratory Rate 18 08/23/24 19:44 Blood Pressure 149/103 H 08/23/24 19:44 Pulse Oximetry 97 08/23/24 19:44 Oxygen Delivery Room Air 08/23/24 19:44 MDM - Extremity Injury (Upper) MDM Narrative Medical decision making narrative: 53-year-old female with history of lupus, fibromyalgia, complex regional pain syndrome, degenerative joint disease. Patient presents to the emergency department for evaluation of left upper extremity swelling and pain. She went to urgent care this afternoon for the symptoms and they were concerned about potential blood clot and DVT especially his she has a history of DVTs in her legs remotely in the past. Not presently on any anticoagulation. No recent medical problems, instrumentation, IVs or any trauma to the hand or arm. Does have some swelling and pain in the left upper extremity. No chest pain or difficulty in breathing, no nausea, vomiting, abdominal pain, back pain, fever chills. Was referred from urgent care to obtain workup for DVT. Left upper extremity with some mild swelling compared to the right upper extremity with some tenderness to palpation reproducible in the left anterior upper arm. No overlying skin changes such as redness or ecchymosis, pulses are 2+ bilaterally, normal range of motion, normal sensation and good distal neuro vasculature. Doppler ultrasound of left upper extremity was ordered and basic laboratory studies such as CBC and CMP ordered in case she needs anticoagulation. Ultrasound was unremarkable and no DVT was found. Her laboratory studies show no acute findings or concerns. She can safely go home at this time with outpatient primary care provider follow-up. Medical Records Attestation: I reviewed the patient's medical records. Lab Data Attestation: I reviewed the patient's lab results. 08/23/24 20:25 08/23/24 20:25 Labs: Lab Results 08/23/24 Range/Units 20:25 WBC 6.2 (4.5-10.0) K/mm3 RBC 4.32 (4.2-5.4) M/mm3 Hgb 11.6 L (12.0-15.0) g/dL Hct 36.7 L (37.0-47.0) % MCV 85.0 (80-100) fl MCH 26.9 (26-34) pg MCHC 31.6 L (32-36) g/dl RDW 13.3 (11.5-14.5) % Plt Count 210 (150-375) k/mm3 MPV 9.7 (7.4-10.4) fl Immature Gran % (Auto) 0.5 (0-0.5) % Neut % (Auto) 51.1 (45.5-73.1) % Lymph % (Auto) 37.7 (18.3-44.2) % [place] % (Auto) 6.7 (2.6-8.5) % Eos % (Auto) 3.7 (0-4.4) % Baso % (Auto) 0.3 (0.2-1.2) % Lymph # (Auto) 2.35 (0.9-3.2) K/mm3 [place] # (Auto) 0.4 (0.1-0.6) K/mm3 Eos # (Auto) 0.2 (0-0.3) K/mm3 Baso # (Auto) 0.0 (0.0-0.1) K/mm3 Abs Immat Gran (auto) 0.03 (0.00-0.031) K/mm3 Absolute Neuts (auto) 3.2 (1.3-6.7) K/mm3 Absolute Nucleated RBC 0.000 (0.0-0.012) K/mm3 Nucleated RBC % 0.0 (0.0-0.2) % Sodium 142 (137-145) mmol/L Potassium 4.1 (3.4-5.0) mmol/L Chloride 105 (98-107) mmol/L Carbon Dioxide 28 (22-30) mmol/L Anion Gap 9 (4-12) mmol/L BUN 17 (7-17) mg/dL Creatinine 0.85 (0.7-1.0) mg/dL Estim Creat Clear Calc 80 ml/min Estimated GFR > 60 (59 - ) Glucose 103 (65-110) mg/dL Calcium 9.5 (8.4-10.2) mg/dL Total Bilirubin 0.3 (0.2-1.3) mg/dL AST 33 (14-36) U/L ALT 40 H (6-35) U/L Alkaline Phosphatase 67 (38-126) U/L Total Protein 7.7 (6.3-8.2) g/dL Albumin 4.3 (3.5-5.1) g/dL Imaging Data Attestation: I personally reviewed and interpreted this imaging study as follows: My impression: Impressions Venous Doppler Study 08/23/24 21:51 IMPRESSION: Negative left upper extremity venous US. No deep vein thrombosis. Discharge Plan Discharge Clinical Impression: Left arm swelling Patient Disposition: Home Condition: Stable Instructions: Antibiotic Form Additional Instructions: Your DVT study was negative, no blood clots were found and your laboratory studies are all reassuring and unremarkable. Follow-up with regular doctor about your symptoms, return with any emergent concerns. Patient Language: Georgian Prescriptions: No Action norethindrone-e.estradiol-iron [03/14 (28)] 1 mg-20 mcg (21)/75 mg (7) tablet 1 tablet PO DAILY ezetimibe 10 mg tablet 10 mg PO DAILY pregabalin 200 mg capsule 200 mg PO DIRECTED Follow-up/Referrals: Josh,MD Charlotte [Primary Care Provider] - Time of Disposition: 22:05
--- OUTSIDE RECORDS SUMMARY | 2024-08-23 20:28 | XMS_ITS | Clinical Summary ---
Author Organization [facility] Address [address] [place] [address] Care Team Providers Care 3D Specialist Name Role Phone Gonzalez Webb DO Primary Care Provider [phone] Source Comments [facility]iliates and Associated Physician Practices is amultiple site organization consisting of ambulatory clinics and hospital sitesin [place] and [place]. This disclosure is being madepursuant to the Care Everywhere program and may not contain all information available regarding this patient. Last updated 17.[facility] Allergies Active Allergy Reactions Criticality Noted Date [...] patient's age to complete this [place] [address] Care Teams 3D Specialist Relationship Specialty Start Date End Date Gonzalez Webb DO PCP - General 11/16/19
--- OUTSIDE RECORDS SUMMARY | 2024-08-23 20:28 | XMS_ITS | Referral Summary ---
Author Organization [facility] Address [address] [place] [address] Care Team Providers Care Custom Marine Canvas Fabricator Name Role Phone Ivan Villa NP Primary Care Provider [phone] Encounters Date Type Department Care Team Description 07/20/2024 [facility] Quality [facility] Accountable Care Organization [address] [place] [id number] Venkatesh, Hannah 07/20/[address] [facility] [address] [facility] Care Organization [address] [place] [id number] Leopold, Hannah 06/24/[address] [facility] Care Organization [address] [place] [id number] Leopold, Hannah Unsuccessful Phone Call 3 ([facility] appt) 05/25/[address] [facility] Care Organization [address] [place] [id number] Sandy Hall MA Unsuccessful Phone Call 2 ([facility] AWV) 05/24/2024 Telephone Family [facility] at [address] [place] [address] Mamie Calero Unsuccessful Phone Call [...] 01/27/2022 Assessment & Plan (01/27/2022 8:27 AM SOCIAL DIRECTOR): 5 sutures removed, patient tolerated well Wound [...] affective 05/30/2021 Overview (05/30/2021): Dr. Mino Evans [phone] (anxiety/depression) Assessment & Plan (07/22/2022 12:02 PM CDT): Under care with psychiatry, currently stable Acute bronchitis due to other specified organism s 03/07/2021 Assessment & Plan (03/11/2021 2:39 PM SOCIAL DIRECTOR): Seek care immediately if: You cough up [...] 03/02/2021 Assessment & Plan (03/11/2021 2:39 PM SOCIAL DIRECTOR): Symptoms improving, no fever, no SOB Assessment & Plan (03/02/2021 5:07 PM SOCIAL DIRECTOR): Drink fluids.- Use cold clothes around the neck under the arms and groin. Zofran sent for nausea. May need IVF for cooling. Secondary hyperparathyroidism 10/05/2020 Complex regional pain syndro me type 1 of both lower extremities 08/20/2020 Assessment & Plan (01/14/2021 1:16 PM SOCIAL DIRECTOR): -Pain pump implant by Dr. Adamson Pain Management Tendinitis of right triceps 07/05/2020 Assessment & Plan (07/05/2020 3:54 PM CDT): Patient has tendinitis of the triceps and medial lateral epicondylar structures with olecranon bursitis. An elbow sleeve may be helpful. She should avoid overuse and repetitive activities. She should avoid vibration such as a sketch artist or any direct pressure on the point [...] 11/18/2017 Assessment & Plan (01/14/2021 1:15 PM SOCIAL DIRECTOR): Weight Loss to Achieve Healthy BMI (18.5-24.9) [...] shortening. Assessment & Plan (04/20/2019 12:30 PM SOCIAL DIRECTOR): - BMI too high, counseled on dietary [...] monitoring Assessment & Plan (01/15/2022 1:51 PM SOCIAL DIRECTOR): B/p goal <140/90 Today - 122/76 Continue - monitoring - currently stable Assessment & Plan (04/03/2020 10:43 AM SOCIAL DIRECTOR): Blood pressure a little elevated today at [...] tolerated Assessment & Plan (04/20/2019 12:29 PM SOCIAL DIRECTOR): Continue current medication Condition stable Resolved Problems [...] often do you attend chur ch or buddhism services? Never 05/02/2021 Do you belong to any clubs o r organizations such as anglican groups, unions, fraternal or athletic groups, or [...] place to sleep or slept in a fdc (including now)? No 05/02/2021 Personal Safety Answer Date Recorded Have you ever been in or are you currently in a harmful physical or emotional relationship or is someone making you feel afraid or unsafe? 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 Not on file Not on file Not on file Last Filed Vital Signs Vital Sign Reading Time Taken Comments Blood Pressure 145/78 12/30/2022 11:30 AM SOCIAL DIRECTOR Pulse 53 12/30/2022 11:30 AM SOCIAL DIRECTOR Temperature 36.8 C (98.3 F) 12/30/2022 5:24 AM SOCIAL DIRECTOR Respiratory Rate 18 12/30/2022 5:24 AM SOCIAL DIRECTOR Oxygen Saturation 100% 12/30/2022 11:30 AM SOCIAL DIRECTOR Inhaled Oxygen Concentration - - Weight 90.3 kg (199 lb) 12/30/2022 5:24 AM SOCIAL DIRECTOR Height 170.2 cm (5' 7) 12/30/2022 5:24 AM SOCIAL DIRECTOR Body Mass Index 31.17 12/30/2022 5:24 AM SOCIAL DIRECTOR Plan of Treatment Not on file Medical Devices Implanted Type Area Marine Tower Operator Device Identifier Shelf Expiration Date Model / Serial / Lot [employer] 8780 Ascenda 4fr .5mm 114cm 86cm 2 Piece Connector Pin Flexible Closed - [id number] - [id number] Implanted:Qty: 1 on 10/19/2020 by Lambert Adamson MD at [facility] Catheter Right: Abdomen [employer] Inc 09/06/2022 8780 / [id number] / Medtronic Neuro 8637-20 Synchromed Ii .78in [place] Filter Mesh Pouch Programmable - [id number] - [id number] Implanted:Qty: 1 on 10/19/2020 by Lambert Adamson MD at [facility] Intrathecal Pain Pump Right: Abdomen [employer] 03/22/2022 8637-20 / [id number] / Procedures Procedure Name Priority Date/Time Associated Diagnosis Comments HEPATITIS C ANTIBODY Routine 04/05/2021 10:29 AM SOCIAL DIRECTOR Screening examination for venereal disease Unprotected sexual intercourse SCREENING MAMMOGRAM BILATERAL W PERRY Schedule Routine, Read Routine (OP Routine) 04/05/2021 9:47 AM SOCIAL DIRECTOR Encounter for screening mammogram for malignant neoplasm of breast PAP AND HIGH RISK HPV, REFLEX TO GENOTYPING Routine 03/20/2021 9:43 AM SOCIAL DIRECTOR Screening for malignant neoplasm of cervix from Last 3 Months or Most Recently Relevant to Health Maintenance Results * Hepatitis C antibody (04/05/2021 10:29 AM SOCIAL DIRECTOR) Hep C Ab Nonreactive Nonreactive PAULIE GIRALDO [...] on 2019. Blood 04/05/2021 10:2 9 AM SOCIAL DIRECTOR 04/05/2021 12:20 PM SOCIAL DIRECTOR us Gilda Christian NP LAB MICROBIOLOGY - GENE RAL ORDERABLES Edited Result - Final PAULIE GIRALDO [id number] Department [place] [address] * (ABNORMAL) Screening Mammogram Bilateral W Perry (04/05/2021 9:47 AM SOCIAL DIRECTOR) Anatomical Region Laterality Modality Breast Bilateral Mammography 04/05/2021 10:2 2 AM SOCIAL DIRECTOR Impressions 04/05/2021 10:22 AM SOCIAL DIRECTOR BI-RADS Category 0, incomplete needs additional imaging evaluation of the right breast. Recommendation Right diagnostic mammogram and Limited ultrasound. Electronically signed by: Felisa Abraham M.D. Narrative 04/05/2021 10:22 AM SOCIAL DIRECTOR Examination: SCREENING MAMMOGRAM BILATERAL W PERRY Order [...] HPV, reflex to Genotyping (03/20/2021 9:43 AM SOCIAL DIRECTOR) Swab (Pap test) 03/20/2021 9 :43 AM SOCIAL DIRECTOR 03/20/2021 9:43 AM SOCIAL DIRECTOR Narrative PATHOLOGY CH - 03/22/2021 11:19 AM SOCIAL DIRECTOR [facility] of Pathology [address] [place] [address] Final Report with Addendum Note to Patients: [...] the details. Patient Name: PRADEEP BLACKWELL Address: [address] [place] [address] Gender: F : 1970 (Age: 50) Service: Laboratory Location: Lab [facility] #: [id number] Patient Type: Ref Lab Taken: 03/20/2021 Received: [...] determined by the Surgical Pathology Department at [facility] as part of an ongoing quality management coordinator program and in compliance with federally mandated [...] characteristics determined by the Surgical Pathology Department [facility]. It has not been cleared or approved by the U. S. Food and Drug Administration. Gilda Christian NP LAB CYTOLOGY ORDERABLES Final Result PATHOLOGY [address] [place] [address] from Last 3 Months or Most Recently Relevant to Health Maintenance Insurance [id number] [place] [address] [facility]ALTHCARE [facility] Advance Directives For more information, please contact: [phone] * Full Code (Latest Code Status on File) Date Activated Date Inactivated Comments 08/22/2017 4:00 AM 08/25/2017 6:11 PM Care Teams Custom Marine Canvas Fabricator Relationship Specialty [place] [address] [place] [address] PCP - General Family Medicine 01/15/21
--- OUTSIDE RECORDS SUMMARY | 2024-08-23 20:28 | XMS_ITS | Encounter Summary ---
Author Organization [facility] Healthcare Address [address] [place] [address] Care Team Providers Care Equipment Operator Warehouse Name Role Phone Ivan Villa NP Primary Care Provider [phone] Encounter Details Date Type Department Care Team (Late st Contact Info) Description 09/07/2023 Telephone Family Care at [address] [address] Ivan Villa NP [address] [place] [address] [address] [place] [address] Social History Tobacco Use Types [...] often do you attend chur ch or protestant services? Never 05/02/2021 Do you belong to any clubs o r organizations such as islam groups, unions, fraternal or athletic groups, or [...] place to sleep or slept in a skilled nursing (including now)? No 05/02/2021 Personal Safety Answer Date Recorded Have you ever been in or are you currently in a harmful physical or emotional relationship or is someone making you feel afraid or unsafe? 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
--- OUTSIDE RECORDS SUMMARY | 2024-08-23 20:28 | XMS_ITS | Clinical Summary ---
Author Organization [facility] Address [address] [place] [address] Care Team Providers Care Pulmonary Nurse Practitioner Name Role Phone Ivan Villa NP Primary Care Provider [phone] Allergies Active Allergy Reactions Criticality Noted Date [...] 01/27/2022 Assessment & Plan (01/27/2022 8:27 AM LINE MANAGER): 5 sutures removed, patient tolerated well Wound [...] affective 05/30/2021 Overview (05/30/2021): Dr. Mino Evans [phone] (anxiety/depression) Assessment & Plan (07/22/2022 12:02 PM CDT): Under care with psychiatry, currently stable Acute bronchitis due to other specified organism s 03/07/2021 Assessment & Plan (03/11/2021 2:39 PM LINE MANAGER): Seek care immediately if: You cough up [...] 03/02/2021 Assessment & Plan (03/11/2021 2:39 PM LINE MANAGER): Symptoms improving, no fever, no SOB Assessment & Plan (03/02/2021 5:07 PM LINE MANAGER): Drink fluids.- Use cold clothes around the neck under the arms and groin. Zofran sent for nausea. May need IVF for cooling. Secondary hyperparathyroidism 10/05/2020 Complex regional pain syndro me type 1 of both lower extremities 08/20/2020 Assessment & Plan (01/14/2021 1:16 PM LINE MANAGER): -Pain pump implant by Dr. Adamson Pain Management Tendinitis of right triceps 07/05/2020 Assessment & Plan (07/05/2020 3:54 PM CDT): Patient has tendinitis of the triceps and medial lateral epicondylar structures with olecranon bursitis. An elbow sleeve may be helpful. She should avoid overuse and repetitive activities. She should avoid vibration such as a milling supervisor or any direct pressure on the point [...] 11/18/2017 Assessment & Plan (01/14/2021 1:15 PM LINE MANAGER): Weight Loss to Achieve Healthy BMI (18.5-24.9) [...] shortening. Assessment & Plan (04/20/2019 12:30 PM LINE MANAGER): - BMI too high, counseled on dietary [...] monitoring Assessment & Plan (01/15/2022 1:51 PM LINE MANAGER): B/p goal <140/90 Today - 122/76 Continue - monitoring - currently stable Assessment & Plan (04/03/2020 10:43 AM LINE MANAGER): Blood pressure a little elevated today at [...] tolerated Assessment & Plan (04/20/2019 12:29 PM LINE MANAGER): Continue current medication Condition stable Resolved Problems [...] Date Type Department Care Team Description 07/20/2024 [facility] Care [address] [address] Hannah Riddle 07/20/2024 [facility] Care [address] [address] Hannah Riddle 06/24/[address] [address] Hannah Riddle Unsuccessful Phone Call 3 ([facility] appt) 05/25/2024 Telephone [facility] Care Organization [address] [place] [id number] Sandy Hall [place] Unsuccessful Phone Call 2 ([facility] AWV) 05/24/2024 Telephone Family Care at [address] [address] Mamie Calero Unsuccessful Phone Call [...] often do you attend chur ch or synagogue services? Never 05/02/2021 Do you belong to any clubs o r organizations such as gnosticist groups, unions, fraternal or athletic groups, or [...] place to sleep or slept in a mcfp (including now)? No 05/02/2021 Personal Safety Answer Date Recorded Have you ever been in or are you currently in a harmful physical or emotional relationship or is someone making you feel afraid or unsafe? 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 [...] Comments Blood Pressure 145/78 12/30/2022 11:30 AM LINE MANAGER Pulse 53 12/30/2022 11:30 AM LINE MANAGER Temperature 36.8 C (98.3 F) 12/30/2022 5:24 AM LINE MANAGER Respiratory Rate 18 12/30/2022 5:24 AM LINE MANAGER Oxygen Saturation 100% 12/30/2022 11:30 AM LINE MANAGER Inhaled Oxygen Concentration - - Weight 90.3 kg (199 lb) 12/30/2022 5:24 AM LINE MANAGER Height 170.2 cm (5' 7) 12/30/2022 5:24 AM LINE MANAGER Body Mass Index 31.17 12/30/2022 5:24 AM LINE MANAGER Plan of Treatment Health Maintenance Due Date [...] Completed 04/05/2021 Medical Devices Implanted Type Area Training Developer Device Identifier Shelf Expiration Date Model / Serial / Lot [employer] Inc 8780 Ascenda 4fr .5mm 114cm 86cm 2 Piece Connector Pin Flexible Closed - [id number] - [id number] Implanted:Qty: 1 on 10/19/2020 by Lambert Adamson MD at [facility] Catheter Right: Abdomen [employer] Inc 09/06/2022 8780 / [id number] / Medtronic Neuro 8637-20 Synchromed Ii .78in [place] Filter Mesh Pouch Programmable - [id number] - [id number] Implanted:Qty: 1 on 10/19/2020 by Lambert Adamson MD at [facility] Intrathecal Pain Pump Right: Abdomen [employer] Inc 03/22/2022 8637-20 / [id number] / Procedures Procedure Name Priority Date/Time Associated Diagnosis Comments HEPATITIS C ANTIBODY Routine 04/05/2021 10:29 AM LINE MANAGER Screening examination for venereal disease Unprotected sexual intercourse SCREENING MAMMOGRAM BILATERAL W PERRY Schedule Routine, Read Routine (OP Routine) 04/05/2021 9:47 AM LINE MANAGER Encounter for screening mammogram for malignant neoplasm of breast PAP AND HIGH RISK HPV, REFLEX TO GENOTYPING Routine 03/20/2021 9:43 AM LINE MANAGER Screening for malignant neoplasm of cervix from Last 3 Months or Most Recently Relevant to Health Maintenance Results * Hepatitis C antibody (04/05/2021 10:29 AM LINE MANAGER) Hep C Ab Nonreactive Nonreactive PAULIE GIRALDO [...] on 2019. Blood 04/05/2021 10:2 9 AM LINE MANAGER 04/05/2021 12:20 PM LINE MANAGER Gilda Christian NP LAB MICROBIOLOGY - [facility] ORDERABLES Edited Result - Final PAULIE GIRALDO [address] [address] Department [place] [address] * (ABNORMAL) Screening Mammogram Bilateral W Perry (04/05/2021 9:47 AM LINE MANAGER) Anatomical Region Laterality Modality Breast Bilateral Mammography 04/05/2021 10:2 2 AM LINE MANAGER Impressions 04/05/2021 10:22 AM LINE MANAGER BI-RADS Category 0, incomplete needs additional imaging evaluation of the right breast. Recommendation Right diagnostic mammogram and Limited ultrasound. Electronically signed by: Felisa Abraham M.D. Narrative 04/05/2021 10:22 AM LINE MANAGER Examination: SCREENING MAMMOGRAM BILATERAL W PERRY Order [...] HPV, reflex to Genotyping (03/20/2021 9:43 AM LINE MANAGER) Swab (Pap test) 03/20/2021 9 :43 AM LINE MANAGER 03/20/2021 9:43 AM LINE MANAGER Narrative PATHOLOGY CH - 03/22/2021 11:19 AM LINE MANAGER [facility] Department of Pathology [address] [place] [address] Final Report with Addendum Note to [...] the details. Patient Name: PRADEEP BLACKWELL Address: [address] [place] [address] Gender: F : 1970 (Age: 50) Service: Laboratory Location: Lab [facility] #: [id number] Patient Type: Ref Lab Taken: 03/20/2021 Received: [...] determined by the Surgical Pathology Department at [facility] as part of an ongoing quality control clerk program and in compliance with federally mandated [...] characteristics determined by the Surgical Pathology Department [facility]. It has not been cleared or approved by the U. S. Food and Drug Administration. Gilda Christian NP LAB CYTOLOGY ORDERABLES Final Result Performing Organization Address City/State/ZIP [place] Phone Number PATHOLOGY [address] [place] [address] from Last 3 Months or Most Recently Relevant to Health Maintenance [place] [address] [address] [place] [address] HEALTHCARE Advance Directives For more information, please contact: [phone] * Full Code (Latest Code Status on File) Date Activated Date Inactivated Comments 08/22/2017 4:00 AM 08/25/2017 6:11 PM Care Teams Pulmonary Nurse Practitioner Relationship Specialty [place] [address] [place] [address] PCP - General Family Medicine 01/15/21
[2024-08-23 20:30] LABS: Hematocrit 36.7 % (37.0-47.0); Hemoglobin 11.6 g/dL (12.0-15.0); Immature Granulocyte Percent A 0.5 % (0-0.5); Lymphocytes Absolute Auto 2.35 K/mm3 (0.9-3.2); Mean Corpuscular HGB Conc 31.6 g/dl (32-36); Mean Corpuscular Hemoglobin 26.9 pg (26-34); Mean Corpuscular Volume 85.0 fl (80-100); Nucleated Red Blood Cells Absolute Auto 0.000 K/mm3 (0.0-0.012); Nucleated Red Blood Cells Perc 0.0 % (0.0-0.2); Platelet Count Result 210 k/mm3 (150-375); Red Blood Count 4.32 M/mm3 (4.2-5.4); White Blood Count 6.2 K/mm3 (4.5-10.0)
[2024-08-23 20:41] LABS: Alanine Aminotransferase 40 U/L (6-35); Albumin Level 4.3 g/dL (3.5-5.1); Alkaline Phosphatase 67 U/L (38-126); Anion Gap 9 mmol/L (4-12); Aspartate Amino Transferase 33 U/L (14-36); Bilirubin,Total 0.3 mg/dL (0.2-1.3); Blood Urea Nitrogen 17 mg/dL (7-17); Calcium 9.5 mg/dL (8.4-10.2); Carbon Dioxide 28 mmol/L (22-30); Chloride 105 mmol/L (98-107); Estimated CRCL calculation 80 ml/min; Estimated Glomerular Filt Rate > 60; Glucose 103 mg/dL (65-110); Potassium 4.1 mmol/L (3.4-5.0); Sodium 142 mmol/L (137-145); Total Protein 7.7 g/dL (6.3-8.2)
== END 2024-08-23 22:14 | disposition home or self-care (01) ==
PROVIDERS: Emergency Provider Student in an Organized Health Care Education/Training Program; PCP Family Medicine
DX: R22.42 Localized swelling, mass and lump, left lower limb (principal); M79.7 Fibromyalgia; M32.9 Systemic lupus erythematosus, unspecified; Z86.718 Personal history of other venous thrombosis and embolism
CPT/HCPCS: 36415; 80053; 85025; 93971; 99284

== ENCOUNTER 2024-09-08 13:18 | Outpatient (CLI) | payer OTHER, SELFPAY ==
--- NOTE | ~2024-09-08 | XR_ITS ---
Left Shoulder Technique: AP and scapular Y views were obtained. Clinical History: Pain Findings: No fracture or dislocation is seen. Osseous alignment is anatomic. The glenohumeral and acr omioclavicular joint spaces are preserved. Soft tissues are unremarkable. Impression: Unremarkable left shoulder radiographs. Reviewed, dictated and finalized at [facility]. Impression: Unremarkable left shoulder radiographs.
== END 2024-09-08 13:19 | disposition home or self-care (01) ==
LOC: MICIMG 13:20
PROVIDERS: PCP Family Medicine; Visit Provider Nurse Practitioner Family
DX: M25.512 Pain in left shoulder (principal)
CPT/HCPCS: 73030

== ENCOUNTER 2024-11-30 11:19 | Emergency (ER) | payer OTHER, SELFPAY ==
[2024-11-30 11:32] VITALS: BP 104/84; PULSE 100; RESP 16; TEMP 36.4; O2SAT 96
--- NOTE | 2024-11-30 11:51 | ED.SKABFB ---
HPI - Skin/Abscess/Foreign Bdy General Chief complaint: Skin/Abscess/Foreign Body Stated complaint: irritation under breast Time Seen by Provider: 11/30/24 11:44 Source: patient and RN notes reviewed Mode of arrival: ambulatory Limitations: no limitations History of Present Illness HPI narrative: 54-year-old female patient presents today complaining of painful rash below each breast that has been present since yesterday. She has been using coconut in baking soda without improvement of symptoms. In the past she has had a prescription for nystatin from her OBGYN for similar symptoms. Related Data Home Medications ?Medication ?Instructions ?Recorded ?Confirmed ?Last Taken ?Type ezetimibe 10 mg tablet 10 mg PO DAILY 01/05/22 01/28/23 Unknown History norethindrone 1 mg-ethinyl 1 tablet PO DAILY 01/05/22 01/28/23 Unknown History estradiol 20 mcg (21)-iron 75 mg (7) tablet (03/14 ()) pregabalin 200 mg capsule 200 mg PO DIRECTED 01/05/22 01/28/23 Unknown History Allergies Allergy/AdvReac Type Severity Reaction Status Date / Time aspirin AdvReac Intermediate Vomiting Verified 11/30/24 11:21 celecoxib AdvReac Intermediate Vomiting Verified 11/30/24 11:21 codeine AdvReac Intermediate Vomiting Verified 11/30/24 11:21 levofloxacin AdvReac Intermediate Vomiting Verified 11/30/24 11:21 Sulfa (Sulfonamide AdvReac Intermediate Vomiting Verified 11/30/24 11:21 Antibiotics) morphine AdvReac Mild RASH Verified 11/30/24 11:21 Penicillins AdvReac Mild RASH Verified 11/30/24 11:21 CIPROFLOXACIN HCL AdvReac Intermediate Vomiting Uncoded 08/23/24 19:50 NITROFURANTOIN MACROCRYSTAL AdvReac Intermediate Vomiting Uncoded 08/23/24 19:50 PMFSH Past Medical History Medical History DJD (degenerative joint disease) Complex regional pain syndrome Fibromyalgia Sympathetic reflex dystrophy Social History Social History Smoking status: Never smoker Alcohol intake: never Gender identity (if verbalized by the patient): Male Comments At time of signature, I have reviewed and agree with nursing past medical, surgical, social and family history unless otherwise noted. Please see nursing chart for further information. There is no relevant family history pertinent to the presenting complaint Exam Narrative: GENERAL: Well-appearing, well-nourished, and in no acute distress. HEAD: Normocephalic, atraumatic. EYES: EOMI. No redness or drainage. Conjunctivae normal. ENT: Mucous membranes pink and moist. NECK: Normal AROM. CHEST: No respiratory distress. EXTREMITIES: Normal range of motion. No edema. SKIN: Warm. Capillary refill normal. Normal skin turgor. Patient has erythema, maceration in her breast folds bilaterally. This rash is very moist. NEURO: No focal deficits. Alert and oriented x3. Gait steady. PSYCH: Normal affect. No signs of depression or anxiety. Course Course Level of Care: Express Care Visit Vital Signs Vital signs: Vital Signs Temperature 97.5 F L 11/30/24 11:32 Pulse Rate 100 11/30/24 11:32 Respiratory Rate 16 11/30/24 11:32 Blood Pressure 104/84 11/30/24 11:32 Pulse Oximetry 96 11/30/24 11:32 Oxygen Delivery Room Air 11/30/24 11:32 Temperature 97.5 F L 11/30/24 11:32 Pulse Rate 100 11/30/24 11:32 Respiratory Rate 16 11/30/24 11:32 Blood Pressure 104/84 11/30/24 11:32 Pulse Oximetry 96 11/30/24 11:32 Oxygen Delivery Room Air 11/30/24 11:32 Reviewed MDM - Skin/Abscess/Foreign Bdy MDM Narrative Medical decision making narrative: 54-year-old female patient presents today with a painful moist rash below both breasts since yesterday. She has been using coconut baking soda without improvement. Rash is erythematous, moist, and macerated. Recommend regimen of antifungal wash, cool hair tumbler drier operator after cleansing, antifungal cream such as clotrimazole, covering with barrier cream, and mechanical barrier such as cotton T-shirt. Patient agrees with plan. Vital signs stable. Anticipatory guidance given Differential Diagnosis Differential diagnosis: Likely viral exanthem, dermatophytosis, cellulitis, contact dermatitis and other (Intertrigo) Critical Care Time Critical Care Time Critical Care Time: No Discharge Plan Discharge Clinical Impression: Intertrigo Patient Disposition: Home Condition: Stable Instructions: Skin Yeast Infection (ED) Additional Instructions: Please follow these steps for your rash. 1. Cleanse daily with antidandruff shampoo such as Head and Shoulders and pat dry. 2. With cool hair designer or fan, make sure skin folds are dry. 3. Apply an antifungal cream such as Clotrimazole (Lotrimin) 4. Apply a barrier cream over the top, such as Desitin 5. Apply a barrier such as a cut up cotton shirt so the skin is no longer touching. Follow-up with your PCP in 1 week if symptoms are not improving, sooner if symptoms worsen. Patient Language: Kiswahili Prescriptions: No Action norethindrone-e.estradiol-iron [June FE 03/14 (28)] 1 mg-20 mcg (21)/75 mg (7) tablet 1 tablet PO DAILY ezetimibe 10 mg tablet 10 mg PO DAILY pregabalin 200 mg capsule 200 mg PO DIRECTED Follow-up/Referrals: Josh,MD [place] [Primary Care Provider, Unknown] Time of Disposition: 11:58
== END 2024-11-30 12:01 | disposition home or self-care (01) ==
PROVIDERS: Emergency Provider Nurse Practitioner; PCP Family Medicine
DX: L30.4 Erythema intertrigo (principal); M79.7 Fibromyalgia; G90.50 Complex regional pain syndrome I, unspecified
CPT/HCPCS: 99211; G0463